=== PATIENT | male | born 1960 | race Caucasian/White ===

== ENCOUNTER 2017-12-20 14:07 | Inpatient (IN) | payer MEDICAID, OTHER ==
--- NOTE | 2017-12-20 15:09 | ED ---
General Adult HPI - General Source: patient, RN notes reviewed, old records reviewed Mode of arrival: ambulatory Limitations: no limitations <Faizan Hernandez - Last Filed: 12/20/17 15:07> <Mehran Emerson - Last Filed: 12/20/17 18:02> - General Chief complaint: Psychiatric Symptoms Stated complaint: mental health Time Seen by Provider: 12/20/17 14:38 - History of Present Illness Initial comments: This is a 57-year-old male to the ER for evaluation presents today for evaluation of psychosis, patient has history of schizophrenia, she is having paranoid delusions, he thinks that his insides are being notified out by taking an x-ray. Patient brought in by PD, patient called PD due to patient's mental state and not taking his home meds (Faizan Hernandez) - Related Data Allergies Allergy/AdvReac Type Severity Reaction Status Date / Time No Known Allergies Allergy Verified 12/20/17 14:15 Review of Systems ROS Other: All systems not noted in ROS Statement are negative. <Faizan Hernandez - Last Filed: 12/20/17 15:07> ROS Other: All systems not noted in ROS Statement are negative. <Mehran Emerson - Last Filed: 12/20/17 18:02> ROS Statement: Those systems with pertinent positive or pertinent negative responses have been documented in the HPI. Past Medical History Past Medical History: No Reported History History of Any Multi-Drug Resistant Organisms: None Reported Past Surgical History: Hernia Repair, Orthopedic Surgery, Tonsillectomy Past Psychological History: Bipolar, Schizophrenia Smoking Status: Former smoker Past Alcohol Use History: None Reported Past Drug Use History: Marijuana <Faizan Hernandez - Last Filed: 12/20/17 15:07> General Exam Limitations: no limitations General appearance: alert, in no apparent distress Head exam: Present: atraumatic, normocephalic, normal inspection Eye exam: Present: normal appearance, PERRL, EOMI. Absent: scleral icterus, conjunctival injection, periorbital swelling ENT exam: Present: normal exam, mucous membranes moist Neck exam: Present: normal inspection. Absent: tenderness, meningismus, lymphadenopathy Respiratory exam: Present: normal lung sounds bilaterally. Absent: respiratory distress, wheezes, rales, rhonchi, stridor Cardiovascular Exam: Present: regular rate, normal rhythm, normal heart sounds. Absent: systolic murmur, diastolic murmur, rubs, gallop, clicks GI/Abdominal exam: Present: soft, normal bowel sounds. Absent: distended, tenderness, guarding, rebound, rigid Extremities exam: Present: normal inspection, full ROM, normal capillary refill. Absent: tenderness, pedal edema, joint swelling, calf tenderness Back exam: Present: normal inspection Neurological exam: Present: alert, oriented X3, CN II-XII intact Psychiatric exam: Present: normal affect, normal mood Skin exam: Present: warm, dry, intact, normal color. Absent: rash <Faizan Hernandez - Last Filed: 12/20/17 15:07> Course <Faizan Hernandez - Last Filed: 12/20/17 15:07> <Mehran Emerson - Last Filed: 12/20/17 18:02> Vital Signs 12/20/17 14:08 Temperature 98.3 F Pulse Rate 78 Respiratory 18 Rate Blood Pressure 157/75 O2 Sat by Pulse 98 Oximetry - Reevaluation(s) Reevaluation #1: 12/20/17 15:09 Patient is medically clear for psychiatric evaluation (Faizan Hernandez) Medical Decision Making <Faizan Hernandez - Last Filed: 12/20/17 15:07> <Mehran Emerson - Last Filed: 12/20/17 18:02> - Medical Decision Making The patient was seen and examined. All diagnostics are reviewed. It does appear that he is having some psychosis and case is discussed with the psychiatric nurse and they would like to admit him for further evaluation and treatment. He does complain of some bruising to his right lateral chest. He states that this was due to an x-ray that he had recently. There is some mild tenderness noted to the area with mild bruising. It is felt as though he may have a rib contusion on the right. He also relates that he's had some occasional abdominal pain and diarrhea. Overall, it is still felt as though he is medically cleared for further psychiatric admission. (Mehran Emerson) - Lab Data Lab Results 12/20/17 Range/Units 16:14 Urine Opiates Screen Not Detected (NotDetected) Ur Oxycodone Screen Not Detected (NotDetected) Urine Methadone Screen Not Detected (NotDetected) Ur Propoxyphene Screen Not Detected (NotDetected) Ur Barbiturates Screen Not Detected (NotDetected) U Tricyclic Antidepress Not Detected (NotDetected) Ur Phencyclidine Scrn Not Detected (NotDetected) Ur Amphetamines Screen Not Detected (NotDetected) U Methamphetamines Scrn Not Detected (NotDetected) U Benzodiazepines Scrn Detected H (NotDetected) Urine Cocaine Screen Not Detected (NotDetected) U Marijuana (THC) Screen Detected H (NotDetected) Disposition <Faizan Hernandez - Last Filed: 12/20/17 15:07> Is patient prescribed a controlled substance at d/c from ED?: No Time of Disposition: 18:02 Decision Date: 12/20/17 Decision Time: 18:02 <Mehran Emerson - Last Filed: 12/20/17 18:02> Clinical Impression: Psychosis, Contusion of rib on right side Disposition: ADMITTED IP TO THIS [facility] Condition: Fair Referrals: None,Stated [REFERRING] - 1-2 days
[2017-12-20 16:38] LABS: Amphetamine Screen,Urine Not Detected (NotDetected); Barbiturate Screen,Urine Not Detected (NotDetected); Benzodiazepines Screen,Urine Detected (NotDetected); Cocaine Screen,Urine Not Detected (NotDetected); Methadone Screen, Urine Not Detected (NotDetected); Opiate Screen,Urine Not Detected (NotDetected); Oxycodone Screen, Urine Not Detected (NotDetected); Phencyclidine Screen,Urine Not Detected (NotDetected); Tricyclic Antidepressant,Urine Not Detected (NotDetected); Urn Cannabinoid Scrn Detected (NotDetected)
[2017-12-20] MEDS ORDERED: ACETAMINOPHEN TAB 500 MG TAB PO STA (16:54)
[2017-12-20] MEDS ORDERED: MAGNESIUM HYDROXIDE 2,400 MG/10 ML CUP PO PRN (18:14)
[2017-12-20] MEDS ORDERED: ZIPRASIDONE 20 MG VIAL IM PRN (18:14)
[2017-12-20 18:31] LABS: Appearance,Urine Clear (Clear); Bilirubin,Urine Negative (Negative); Blood,Urine Negative (Negative); Color,Urine Yellow; Glucose,Urine (UA) Negative (Negative); Ketones,Urine 1+ (Negative); Leukocyte Esterase,Urine Negative (Negative); Nitrite,Urine Negative (Negative); Protein,Urine Trace (Negative); Specific Gravity,Urine 1.016 (1.001-1.035); Urobilinogen,Urine <2.0 mg/dL (<2.0)
[2017-12-20 19:10] VITALS: BMI 29.0
[2017-12-20] MEDS: PANTOPRAZOLE 40 MG TABLET PO SCH (20:12)
[2017-12-20] MEDS ORDERED: QUEtiapine 50 MG TAB PO SCH (21:00)
[2017-12-21] MEDS: PANTOPRAZOLE 40 MG TABLET PO SCH ×2 (08:19→17:53)
[2017-12-21] MEDS: FLUTICASONE 50MCG/SPRAY NASAL 16GM EA NOSTRIL SCH (08:19)
[2017-12-21 11:35] LABS: Basophils # (A) 0.1 k/uL (0-0.2); Basophils % (A) 0 %; Eosinophils # (A) 0.2 k/uL (0-0.7); Eosinophils % (A) 1 %; HCT 42.1 % (39.0-53.0); HGB 14.3 gm/dL (13.0-17.5); Lymphocytes # (A) 1.8 k/uL (1.0-4.8); Lymphocytes % (A) 16 %; MCH 28.6 pg (25.0-35.0); MCHC 33.9 g/dL (31.0-37.0); MCV 84.4 fL (80.0-100.0); Mean Platelet Volume 6.6; Monocytes # (A) 0.8 k/uL (0-1.0); Monocytes % (A) 7 %; Neutrophils # (A) 8.5 k/uL (1.3-7.7); Neutrophils % (A) 74 %; Platelet Count 438 k/uL (150-450); RBC 4.99 m/uL (4.30-5.90); RDW 13.6 % (11.5-15.5); WBC 11.5 k/uL (3.8-10.6)
[2017-12-21 12:03] LABS: ALT 52 U/L (21-72); AST 29 U/L (17-59); Albumin 4.5 g/dL (3.5-5.0); Alkaline Phosphatase 84 U/L (38-126); Anion Gap 15 mmol/L; Blood Urea Nitrogen 11 mg/dL (9-20); Calcium 10.1 mg/dL (8.4-10.2); Carbon Dioxide 23 mmol/L (22-30); Chloride 97 mmol/L (98-107); Glucose 107 mg/dL (74-99); Potassium 4.4 mmol/L (3.5-5.1); Sodium 135 mmol/L (137-145); Total Bilirubin 1.3 mg/dL (0.2-1.3); Total Protein 7.3 g/dL (6.3-8.2)
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
[2017-12-21] MEDS: ACETAMINOPHEN TAB 325 MG TAB PO PRN (15:58)
[2017-12-21] MEDS: TAMSULOSIN 0.4 MG CAP.ER.24H PO SCH (17:53)
[2017-12-21] MEDS: QUEtiapine 100 MG TAB PO SCH (21:07)
--- NOTE | 2017-12-21 21:37 | P.MDCNMH ---
History of Present Illness H&P Date: 12/21/17 Chief Complaint: Delusions Patient is a 57-year-old male with a known history of chronic hip pain and paranoid schizophrenia was admitted to the hospital with acute psychosis. Patient was petitioned by his says he is behaving bizarrely at home. Patient is preoccupied with dizziness things and he thinks that his insides are being notified out by taking an x-ray. Otherwise patient currently denied any complaints of chest pain or shortness of breath. Denied any recent illnesses but patient is not a good historian. His UDS found to have marijuana and benzodiazepines. No fever no chills. Review of Systems Constitutional: Patient denies any fever or chills . No generalized weakness or weight loss. Abdomen: Patient denied nausea vomiting and diarrhea and abdominal pain. Cardiovascular: Patient denies any chest pain or short of breath no palpitations. Respiratory: patient denied any cough is from production. No shortness of breath Neurologic: Patient denied any numbness or tingling headache. Musculoskeletal: Patient denies any complaints of joint swelling or deformity. Complains of hip pain Past Medical History Past Medical History: No Reported History History of Any Multi-Drug Resistant Organisms: None Reported Past Surgical History: Hernia Repair, Orthopedic Surgery, Tonsillectomy Smoking Status: Former smoker Medications and Allergies Home Medications Medication Instructions Recorded Confirmed Type ALPRAZolam [Xanax] 0.5 mg PO TID PRN 12/20/17 12/20/17 History Fluticasone Propionate [Flonase 1 spray EA NOSTRIL DAILY 12/20/17 12/20/17 History Allergy Relief] Omeprazole 40 mg PO BID 12/20/17 12/20/17 History Tamsulosin [Flomax] 0.8 mg PO W/SUPPER 12/20/17 12/20/17 History Allergies Allergy/AdvReac Type Severity Reaction Status Date / Time No Known Allergies Allergy Verified 12/20/17 18:23 Physical Exam Vitals: Vital Signs Temp Pulse Pulse Resp BP BP Pulse Ox 12/21/17 08:34 87 18 115/68 12/21/17 06:44 98.3 F 89 12 138/69 12/20/17 19:02 97.5 F L 66 16 132/71 97 12/20/17 18:16 73 18 129/79 98 Intake and Output 12/20/17 12/21/17 12/21/17 22:59 06:59 14:59 Other: Weight 89.2 kg PHYSICAL EXAMINATION: Patient is lying in the bed comfortably, no acute distress, awake alert but patient is incoherent. HEENT: Normocephalic. Neck is supple. Pupils reactive. Nostrils clear. Oral cavity is moist. Ears reveal no drainage. Neck reveals no JVD, carotid bruits, or thyromegaly. CHEST EXAMINATION: Trachea is central. Symmetrical expansion. Lung travis clear to auscultation and percussion. CARDIAC: Normal S1, S2 with no gallops. No murmurs ABDOMEN: Soft. Bowel sounds normal. No organomegaly. No abdominal bruits. Extremities: reveal no edema. No clubbing or cyanosis Neurologically awake, alert, oriented x3 with well-coordinated movements. No focal deficits noted Skin: No rash or skin lesions. Psychiatric: Coperative. Could not be obtained completely Musculoskeletal: No joint swelling or deformity. Normal range of motion. Cranial Nerve Examination - Cranial Nerves Cranial Nerve I- Olfactory: Intact Cranial Nerve II- Optic: Intact Cranial Nerve III- Oculomotor: Intact Cranial Nerve IV- Trochlear: Intact Cranial Nerve V- Trigeminal: Intact Cranial Nerve - Abducens: Intact Cranial Nerve VII- Facial: Intact Cranial Nerve VIII- Auditory: Intact Cranial Nerve IX- Glossopharyngeal: Intact Cranial Nerve X- Vagus: Intact Cranial Nerve XI- Accessory: Intact Cranial Nerve XII- Hypoglossal: Intact Results CBC & Chem 7: 12/21/17 10:54 12/21/17 10:54 Labs: Abnormal Lab Results - Last 24 Hours (Table) 12/20/17 12/20/17 12/21/17 Range/Units 16:14 16:14 10:54 WBC 11.5 H (3.8-10.6) k/uL Neutrophils # 8.5 H (1.3-7.7) k/uL Sodium (137-145) mmol/L Chloride (98-107) mmol/L Glucose (74-99) mg/dL Urine Protein Trace H (Negative) Urine Ketones 1+ H (Negative) U Benzodiazepines Scrn Detected H (NotDetected) U Marijuana (THC) Screen Detected H (NotDetected) 12/21/17 Range/Units 10:54 WBC (3.8-10.6) k/uL Neutrophils # (1.3-7.7) k/uL Sodium 135 L (137-145) mmol/L Chloride 97 L (98-107) mmol/L Glucose 107 H (74-99) mg/dL Urine Protein (Negative) Urine Ketones (Negative) U Benzodiazepines Scrn (NotDetected) U Marijuana (THC) Screen (NotDetected) Assessment and Plan Assessment: Acute psychosis with delusions History of schizophrenia. Noncompliance with medications Hypovolemic hyponatremia Chronic pain syndrome with hip pain and left finger pain Marijuana use Plan: Patient will be continued on current psychiatric medications. Patient is ambulating. No need for DVT prophylaxis. Patient will be counseled for marijuana use. Continue with pain management and will follow up closely. Further recommendations based on the clinical course. Thank you for your consult Time with Patient: Greater than 30
[2017-12-22] MEDS: FLUTICASONE 50MCG/SPRAY NASAL 16GM EA NOSTRIL SCH (09:17)
[2017-12-22] MEDS: PANTOPRAZOLE 40 MG TABLET PO SCH ×2 (09:17→17:35)
--- NOTE | 2017-12-22 15:05 | P.PN ---
Progress Note - Text Progress Note Date: 12/22/17 I reviewed the medical record, interviewed the patient and discuss his treatment and treatment plan during team meeting. The patient was without complaint. We discussed his current psychotropic medication -Seroquel. He stated that, in the past, he was reluctant to take medication because he experienced "restless leg" when he had taken the medication before. He denied that he has experience so far with the dose was prescribing was much lower than prescribed by his outpatient psychiatrist. I explained that we will need to increase his dose but we remain concerned about any potential side effect. He remains religiously preoccupied. He brought a Bible along to the interview and insisted on reading from the Bible. He would not talk about the paranoid or bizarre behavior he displayed prior to admission. He understands that CPS will most likely require his participation in mental health treatment for the children to return home. Medicine consult appreciated He presented as a casually groomed elderly male who looked a bit older than his stated age. He made eye contact and attended to interview. He had no distinguishing features or prominent physical abnormalities. He had a bright facial expression. He is alert and oriented to person, place and time. He showed no abnormality of psychomotor activity. He had no abnormal movements. His speech was spontaneous with slightly increased rate and rhythm. He had no articulation difficulties. His affect was bright, stable and appropriate. He denied suicidal ideation or wishes. He denied homicidal ideation. He denied depressive cognitions such as hopelessness, helplessness or worthlessness. He didn't express ideas reference, paranoid ideation or delusions. He specifically avoided discussing the paranoia and delusional beliefs described by his . His thinking was concrete but his associations were coherent and logical. He did not demonstrate clang associations, perseverations, neologisms or blocking. He denied hallucinations and did not appear to be responding to internal stimuli. Impression: Schizophrenia, rule out schizoaffective disorder, rule out bipolar disorder Plan: Continue inpatient psychiatric hospitalization due to severity of psychiatric symptoms. Continue to titrate the dose of Seroquel to 200 mg per day. Encouraged continued participation in therapeutic groups and activities. Evaluate clinical status response to treatment on a daily basis.
[2017-12-22] MEDS: TAMSULOSIN 0.4 MG CAP.ER.24H PO SCH (17:35)
[2017-12-22] MEDS: QUEtiapine 100 MG TAB PO SCH (21:17)
[2017-12-23] MEDS: FLUTICASONE 50MCG/SPRAY NASAL 16GM EA NOSTRIL SCH (08:39)
[2017-12-23] MEDS: LORazepam 1 MG TAB PO PRN ×2 (08:39→17:49)
[2017-12-23] MEDS: PANTOPRAZOLE 40 MG TABLET PO SCH ×2 (08:39→17:10)
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
[2017-12-23] MEDS: TAMSULOSIN 0.4 MG CAP.ER.24H PO SCH (17:10)
[2017-12-23] MEDS: QUEtiapine 100 MG TAB PO SCH (20:03)
[2017-12-24] MEDS: ACETAMINOPHEN TAB 325 MG TAB PO PRN (01:19)
[2017-12-24] MEDS: LORazepam 1 MG TAB PO PRN ×2 (03:39→16:21)
[2017-12-24] MEDS: PANTOPRAZOLE 40 MG TABLET PO SCH ×2 (09:09→17:58)
[2017-12-24] MEDS: FLUTICASONE 50MCG/SPRAY NASAL 16GM EA NOSTRIL SCH (09:09)
--- NOTE | 2017-12-24 14:23 | P.PN ---
Progress Note - Text Progress Note Date: 12/24/17 I reviewed the medical record, interviewed the patient and discuss his treatment and treatment plan during team meeting. He was distressed over her recent meeting with the superintendent factory from [facility]. I had difficulty understanding the reason for his distress. He repeated that he did not want anyone, other than "Dr. Kirk," to "know my business." He was preoccupied by the incident with his neighbor in November 2017 that led to the charges of assault. He also expressed the belief that "a Iranis or Iraqis" have "damaged my insides" when they obtain x-rays at a [facility]. He also frequently quoted structures and came into the interview room carrying his Bible. He was neatly groomed pleasant and cooperative. He had a blunted but bright facial expression. He showed no abnormality of psychomotor activity. Specifically, he was not agitated or restless. His speech was spontaneous with increased rate to the point that he appeared hyperverbal. His affect was elevated but appropriate. He did not express suicidal ideation, wishes or homicidal ideation. He expressed feelings of hopelessness or helplessness. He expressed ideas of reference, paranoid ideation and delusional thoughts. His thinking was concrete and associations at times were not logical, coherent and goal directed. He denied hallucinations and did not appear to be responding to internal stimuli. Impression: His thinking is much more disorganized and his expressing a disjointed paranoid delusional beliefs. Plan: Continue inpatient hospitalization due to the severity of his psychiatric symptoms. Continue to titrate the Seroquel to a minimum of 200 mg at bedtime. Encourage participation in therapeutic groups and activities. Evaluate clinical status response to treatment on a daily basis.
[2017-12-24] MEDS: MAG HYDROX/AL HYDROX/SIMETH 30 ML CUP PO PRN (15:49)
[2017-12-24] MEDS: QUEtiapine 100 MG TAB PO SCH (15:49)
[2017-12-24] MEDS: TAMSULOSIN 0.4 MG CAP.ER.24H PO SCH (17:58)
[2017-12-25] MEDS: ACETAMINOPHEN TAB 325 MG TAB PO PRN ×2 (02:09→19:56)
[2017-12-25] MEDS: LORazepam 1 MG TAB PO PRN ×3 (06:32→21:18)
[2017-12-25] MEDS: FLUTICASONE 50MCG/SPRAY NASAL 16GM EA NOSTRIL SCH (09:19)
[2017-12-25] MEDS: PANTOPRAZOLE 40 MG TABLET PO SCH ×2 (09:19→16:44)
--- NOTE | 2017-12-25 15:16 | P.PN ---
Subjective Progress Note Date: 12/25/17 Principal diagnosis: Bipolar disorder current episode manic with psychosis Reviewed the medical record, interviewed the patient and discuss his treatment and treatment plan with the treatment team. He was without complaint. His only concern was discharge. He came to the office with his Bible and one point read a passage but did not preach or appeared overtly religiously preoccupied. He was not preoccupied that he was "poison" or "damaged" by x-rays when he was at [facility]. He acknowledged that he could have misunderstood the situation and not have been damaged by x-rays. He was also not preoccupied by the conflict with his neighbor that resulted in the assault charges. We discussed dose of Seroquel and he agreed to increase the dose to 200 mg at bedtime. Objective - Vital Signs Vital signs: Vital Signs Temp 97.8 F 12/25/17 00:25 Pulse 107 H 12/25/17 00:25 Resp 16 12/25/17 00:25 BP 119/69 12/25/17 00:25 Pulse Ox 98 12/24/17 11:29 - Psychiatric Psychiatric Comment(s): He presented as a casually groomed casually dressed elderly male who is here was solid grade. He made eye contact and attended to the interview. He had no distinction features are prominent physical modalities. He had a bright facial expression. He is alert and oriented to person, place and time. He showed about amount. Psychomotor activity and no abnormal movements. His speech was spontaneous with slight increase in rate and rhythm. His affect was bright, stable and appropriate. He denied suicidal ideation, wishes or homicidal ideation. He denied feeling hopeless, helpless or worthless. He did not express ideas reference or clear paranoid ideation. He did not express delusional thoughts. His thinking was concrete but his associations were coherent and logical. He denied hallucinations and did not appear to responding to internal stimuli. - Labs CBC & Chem 7: 12/21/17 10:54 12/21/17 10:54 Assessment and Plan (1) Bipolar I disorder, most recent episode manic, severe with psychotic features Current Visit: Yes Status: Acute Priority: High Code(s): F31.2 - BIPOLAR DISORD, CRNT EPISODE MANIC SEVERE W PSYCH FEATURES SNOMED Code(s): 77053792 Plan: Continue inpatient hospitalization due to the severity of his psychiatric diagnosis. Increase Seroquel to 200 mg at bedtime on 12/26/2017. Continue titration based on tolerance and side effects. Encouraged continued participation in therapeutic groups and activities. Evaluate clinical status response to treatment on a daily basis.
[2017-12-25] MEDS: TAMSULOSIN 0.4 MG CAP.ER.24H PO SCH (16:44)
[2017-12-25] MEDS: MAG HYDROX/AL HYDROX/SIMETH 30 ML CUP PO PRN (17:16)
[2017-12-25] MEDS: QUEtiapine 100 MG TAB PO SCH (21:16)
[2017-12-26] MEDS: FLUTICASONE 50MCG/SPRAY NASAL 16GM EA NOSTRIL SCH (08:21)
[2017-12-26] MEDS: LORazepam 1 MG TAB PO PRN ×2 (08:21→15:33)
[2017-12-26] MEDS: PANTOPRAZOLE 40 MG TABLET PO SCH ×2 (08:21→16:56)
[2017-12-26] MEDS: ACETAMINOPHEN TAB 325 MG TAB PO PRN (13:55)
[2017-12-26] MEDS: TAMSULOSIN 0.4 MG CAP.ER.24H PO SCH (16:56)
--- NOTE | 2017-12-26 20:05 | P.PN ---
Progress Note - Text Progress Note Date: 12/26/17 Patient was seen today. he reports his Seroquel is helping him to sleep better. He describes his visual hallucinations of seeing two people and a young boy running away. He denies side effects from the medications. Reports good appetite. Denies symptoms of depression. Reports going to all his groups. No anger or agitation reported. 57-year-old male, appears his stated age in fair grooming and hygiene. No abnormal movements noted. He maintains good eye contact. His speech is normal rate and tone and volume. Mood is reported as stable steady affect bright. His thought process is linear and goal directed. He denies current auditory hallucinations. rePorts visual hallucinations. Denies paranoia. He denies current suicidal or homicidal ideations. He is alert and oriented 4. Will increase seroquel dose to 200mg po qhs. Monitor for symptoms.
[2017-12-26] MEDS: QUEtiapine 100 MG TAB PO SCH (21:26)
[2017-12-27] MEDS: LORazepam 1 MG TAB PO PRN ×3 (02:44→17:33)
[2017-12-27] MEDS: FLUTICASONE 50MCG/SPRAY NASAL 16GM EA NOSTRIL SCH (08:57)
[2017-12-27] MEDS: PANTOPRAZOLE 40 MG TABLET PO SCH ×2 (08:58→17:31)
--- NOTE | 2017-12-27 09:37 | CONS ---
CONSULTATION DATE OF SERVICE: 12/26/17 I evaluated Mr. Zapien yesterday in the afternoon that is on 12/26/2017. This gentleman is in the mental health unit with a diagnosis of schizophrenia and I was asked to see him because of chest discomfort. His EKGs were reviewed. There were all normal. His initial troponin was also normal and subsequently the 2nd troponin was also normal. His complaint was pain in the right anterior chest. The pain was sharp and occasionally dull, lasted a few seconds on and off. The quality of pain seems very atypical. This gentleman has what seems to be an anxiety schizophrenia and takes some inhalers. He also has some benign prostatic hypertrophy and takes Flomax. He has no known allergies. He has history of some hernia surgery and tonsillectomy. At the time of my evaluation he is virtually asymptomatic. EXAMINATION: VITAL SIGNS: Blood pressure is 118/70, pulse rate is about 74 per minute and regular. HEENT: Unremarkable. Fundus was not examined by me. NECK: Supple. No JVD. I do not hear a carotid bruit. There is no thyromegaly. HEART: Exam reveals S1, S2 heard normally in all areas without a rub, murmur or gallop. LUNGS: Clear. ABDOMEN: Is soft, nontender. EXTREMITIES: Lower extremities reveal normal pulses. No edema. CENTRAL NERVOUS SYSTEM is normal. EKG revealed sinus mechanism, no acute changes. IMPRESSION: 1. Atypical chest pain. 2. Schizophrenia, currently in mental health unit. 3. Benign prostatic hypertrophy. RECOMMENDATIONS: No intervention from a cardiac standpoint. The repeat 2nd troponin is also normal. EKG is unremarkable and pain is atypical. The patient will have an echocardiogram on Thursday and when he is out of the mental health unit, we will consider a stress test as an outpatient, but at this time no intervention necessary. Discussed my thoughts in detail with the patient. Thank you very much for the consult. MMODL / IJN: [id number] /
[2017-12-27] MEDS: ACETAMINOPHEN TAB 325 MG TAB PO PRN (12:39)
[2017-12-27] MEDS: MAG HYDROX/AL HYDROX/SIMETH 30 ML CUP PO PRN (13:13)
[2017-12-27] MEDS: TAMSULOSIN 0.4 MG CAP.ER.24H PO SCH (17:31)
--- NOTE | 2017-12-27 21:03 | P.PN ---
Progress Note - Text Progress Note Date: 12/27/17 Patient was seen today. He reports being compliant with his medications. No side effects reported. stated he only goes to a few groups, and asked why he states there are a lot of evil things going on around. His not to visit him due to his perceived evil things. He reports good sleep and appetite. His current symptoms of depression. Denies anger or agitation or irritability. 57-year-old male, appears his stated age in fair grooming and hygiene. He maintains good eye contact. No abnormal movements noted. His speech and thought processes are tangential. Mood is reported as good and affect appropriate. Denies current auditory or visual hallucinations. He has paranoid delusions. He is alert and oriented 4. He denies current suicidal or HOMICIDAL IDEATIONS.. His insight and judgment are improving. Continue seroquel 200mg po qhs. Monitor for symptoms. Encourage participation in [place] milieu and therapeutic groups Ze worker to coordinate discharge and aftercare.
[2017-12-27] MEDS: QUEtiapine 100 MG TAB PO SCH (21:14)
[2017-12-28] MEDS: LORazepam 1 MG TAB PO PRN ×3 (02:17→22:52)
[2017-12-28] MEDS: FLUTICASONE 50MCG/SPRAY NASAL 16GM EA NOSTRIL SCH (08:51)
[2017-12-28] MEDS: PANTOPRAZOLE 40 MG TABLET PO SCH ×2 (08:51→17:23)
--- NOTE | 2017-12-28 13:34 | P.PN ---
Subjective Progress Note Date: 12/28/17 Principal diagnosis: Bipolar disorder current episode manic with psychosis I reviewed the medical record, interviewed the patient and discuss his treatment and treatment plan with the treatment team. His only concern was discharge and returning to his family. He was religiously preoccupied throughout the interview. He complained of arm and rib pain but denied that he believes that his body was damaged or harm him by x-rays he received at [facility]. He was not preoccupied by the conflict with his neighbor that resulted in the assault charges. He received his first dose of Seroquel 200 mg last night and complained that he feels somewhat sedated today. Objective - Vital Signs Vital signs: Vital Signs Temp 97.6 F 12/28/17 02:20 Pulse 101 H 12/28/17 02:20 Resp 18 12/28/17 02:20 BP 115/64 12/28/17 02:20 Pulse Ox 98 12/24/17 11:29 Intake & Output 12/27/17 12/28/17 12/28/17 18:59 06:59 18:59 Weight 85.2 kg - Psychiatric Psychiatric Comment(s): He presented as a casually groomed casually dressed elderly male who was pleasant on approach. He made eye contact and attended to the interview. He had no distinguishing features are prominent physical abnormalities. He had a blunted but bright facial expression. He is alert and oriented to person, place and time. He had no abnormalities of psychomotor activity and no abnormal movements. His speech was spontaneous with increase in rate and rhythm. He showed pressured speech but he was interruptible. His affect was bright, stable and appropriate. He denied suicidal ideation, wishes or homicidal ideation. He denied feeling hopeless, helpless or worthless. He did not express ideas reference or clear paranoid ideation. He was religiously preoccupied but did not express clear delusional thoughts. His thinking was concrete and his associations were coherent and logical. He denied hallucinations and did not appear to responding to internal stimuli. - Labs CBC & Chem 7: 12/21/17 10:54 12/21/17 10:54 Assessment and Plan (1) Bipolar I disorder, most recent episode manic, severe with psychotic features Current Visit: Yes Status: Acute Priority: High Code(s): F31.2 - BIPOLAR DISORD, CRNT EPISODE MANIC SEVERE W PSYCH FEATURES SNOMED Code(s): 16615917 Plan: Continue inpatient hospitalization due to the severity of his psychiatric diagnosis. Continue Seroquel to 200 mg at bedtime and titrated according to clinical response and tolerance. Encouraged continued participation in therapeutic groups and activities. Evaluate clinical status response to treatment on a daily basis.
[2017-12-28] MEDS: MAG HYDROX/AL HYDROX/SIMETH 30 ML CUP PO PRN (14:33)
[2017-12-28] MEDS: ACETAMINOPHEN TAB 325 MG TAB PO PRN ×2 (14:36→18:49)
[2017-12-28] MEDS: TAMSULOSIN 0.4 MG CAP.ER.24H PO SCH (17:23)
[2017-12-28] MEDS: QUEtiapine 100 MG TAB PO SCH (20:37)
[2017-12-28 21:21] VITALS: PULSE 95
[2017-12-29] MEDS: ACETAMINOPHEN TAB 325 MG TAB PO PRN ×2 (05:41→12:45)
[2017-12-29 06:32] VITALS: BP 106/62; RESP 14; TEMP 97.7
[2017-12-29] MEDS: PANTOPRAZOLE 40 MG TABLET PO SCH (08:53)
[2017-12-29] MEDS: FLUTICASONE 50MCG/SPRAY NASAL 16GM EA NOSTRIL SCH (08:53)
[2017-12-29] MEDS: LORazepam 1 MG TAB PO PRN (08:54)
--- NOTE | 2017-12-29 13:54 | P.DS ---
Providers Date of admission: 12/20/17 17:58 Attending physician: Clif Nicholas MD Consults: 12/20/17 18:14 Consult Physician Routine Consulting Provider: Eloy Zhao Consult Reason/Comments: H&P for mental health admission Do you want consulting provider notified?: Yes 12/25/17 18:47 Consult Physician Urgent Consulting Provider: Humphrey Acosta Consult Reason/Comments: Chest pain Do you want consulting provider notified?: Yes Primary care physician: Manoj Smiley - Zakiya Diagnosis(es) (1) Bipolar I disorder, most recent episode manic, severe with psychotic features Current Visit: Yes Status: Acute Priority: High Hospital Course: He is a 57-year-old male who has a history of a bipolar illness. The police brought him to the emergency department and completed the petition after his called the police concerned about his behavior. He complained that he has become paranoid and delusional or he thought that his insides had been burned by x-rays he received at a [facility]. He believes that God was telling him to preach. He thinks that Yunior also was murdered by Shakir Gregg and dad Shakir Barnettrard plans to kill him and his family. ALLERGIES long history of mental illness and received several diagnoses including schizophrenia and bipolar illness. He is had multiple psychiatric hospitalization and has refused follow-up with [facility]. His stated that he developed a belief that his medications were poisoned and develop paranoid thoughts about staff at [facility]. We admitted him to the psychiatric unit involuntarily under the care of this typewriter operator automatic. We provided a comprehensive biopsychosocial assessment. The mining consultant bridal stylist sales consultant completed the admission physical exam and medical history. The bridal stylist sales consultant diagnosed hypovolemic hyponatremia, chronic pain syndrome with hip pain and left finger pain and marijuana use. The bridal stylist sales consultant did not recommend narcotic pain medications for treatment of the patient's pain. We completed the second clinical certificate and submitted the supporting documents to probate court for involuntary hospitalization. The patient met with his deputy county attorney and deferred the court hearing. We restarted Seroquel and titrate dose gradually to 200 mg by mouth daily. The level of patient's paranoia, disorganized thinking and delusional beliefs gradually abated. However he remained religiously preoccupied. I spoke with his Yamel she reported that when he is well he remains religiously preoccupied. The time of discharge she presented as a casually groomed middle-aged male who was pleasant on approach. He made eye contact and attended to the interview. He had no distinguishing features or prominent physical abnormalities. He had a blunted but bright facial expression. He was alert and oriented to person, place and time. He showed no abnormality of psychomotor behavior. He was not agitated or restless. His speech was spontaneous with normal rate, rhythm and volume. His affect was blunted but stable and appropriate. He denied suicidal ideation or wishes. He denied homicidal ideation. He denies depressive cognitions such as hopelessness , helplessness or worthlessness. He did not ruminate about bodily injury or the friend "Shakir Gregg." He did not express phobias, ideas reference or paranoid ideation. He did not express delusional beliefs. His thinking was concrete but his associations were coherent and logical. He denied hallucinations and did not appear to be responding to internal stimuli. Patient Condition at Discharge: Fair Plan - Discharge Summary Discharge Rx Participant: No New Discharge Prescriptions: New QUEtiapine [SEROquel] 200 mg PO HS #30 tab Continue Fluticasone Propionate [Flonase Allergy Relief] 1 spray EA NOSTRIL DAILY Tamsulosin [Flomax] 0.8 mg PO W/SUPPER Omeprazole 40 mg PO BID Discontinued ALPRAZolam [Xanax] 0.5 mg PO TID PRN PRN Reason: Anxiety Discharge Medication List Fluticasone Propionate [Flonase Allergy Relief] 1 spray EA NOSTRIL DAILY [History] Omeprazole 40 mg PO BID 12/20/17 [History] Tamsulosin [Flomax] 0.8 mg PO W/SUPPER 12/20/17 [History] QUEtiapine [SEROquel] 200 mg PO HS #30 tab 12/29/17 [Rx] Follow up Appointment(s)/Referral(s): [facility] [Outside] - 01/06/18 8:00 am (w/ Gm Montero) Manoj Smiley MD [Primary Care Provider] - As Needed Patient Instructions/Handouts: Bipolar Disorder (GEN), Brief Psychotic Disorder (GEN) Activity/Diet/Wound Care/Special Instructions: Activity and diet as tolerated. Avoid the use of street drugs and alcohol. Take all medications as prescribed. When you are in need of refills on your medications contact your medical provider and/or outpatient psychiatrist to have this done. Please go to scheduled outpatient appointment for aftercare treatment. If symptoms return or become worse call the crisis line at [phone] and/or go to the nearest emergency room for an evaluation. Discharge Disposition: HOME SELF-CARE
== END 2017-12-29 14:23 | disposition home or self-care (01) | DRG 885 ==
LOC: EC 14:07 → 3MHU 17:58
PROVIDERS: ADMIT Psychiatry & Neurology Psychiatry; ATTEND Psychiatry & Neurology Psychiatry
DX: F31.2 Bipolar disorder, current episode manic severe with psychotic features (principal); E87.1 Hypo-osmolality and hyponatremia; F20.0 Paranoid schizophrenia; F41.9 Anxiety disorder, unspecified; G89.4 Chronic pain syndrome; N40.0 Benign prostatic hyperplasia without lower urinary tract symptoms; S20.211A Contusion of right front wall of thorax, initial encounter; Z65.3 Problems related to other legal circumstances; Z79.899 Other long term (current) drug therapy; Z87.891 Personal history of nicotine dependence; Z71.51 Drug abuse counseling and surveillance of drug abuser; F12.90 Cannabis use, unspecified, uncomplicated; M25.559 Pain in unspecified hip; M79.646 Pain in unspecified finger(s); R07.89 Other chest pain; Z91.14 Patient's other noncompliance with medication regimen
CPT/HCPCS: 80053; 80306; 81003; 82075; 84443; 84484; 85025; 93005; 99285

== ENCOUNTER 2017-12-30 18:19 | Inpatient (IN) | payer MEDICAID, OTHER ==
--- NOTE | 2017-12-30 19:18 | ED ---
Psych HPI - General Chief Complaint: Psychiatric Symptoms Stated Complaint: Mental Health Time Seen by Provider: 12/30/17 18:51 Source: patient Mode of arrival: ambulatory - History of Present Illness Initial Comments: This is a 57-year-old male who was just released from 3 W afternoon patient treatment who is back today now for reassessment. He also complains of right axilla pain some burning right-sided abdominal pain he states he has had this for weeks since he fell he states he was evaluated be still having discomfort. He is rather vague in his presentation and explanation of why he is here. He does relate that he smokes cigarettes just prior to arrival he denies any fevers chills nausea vomiting sweats cough or phlegm production dysuria hematuria or constipation or other symptoms. He denies drug or alcohol use. - Related Data Home Medications Medication Instructions Recorded Confirmed Fluticasone Propionate [Flonase 1 spray EA NOSTRIL DAILY PRN 12/20/17 12/30/17 Allergy Relief] Omeprazole 40 mg PO BID 12/20/17 12/30/17 Tamsulosin [Flomax] 0.8 mg PO W/SUPPER 12/20/17 12/30/17 Previous Rx's Medication Instructions Recorded QUEtiapine [SEROquel] 200 mg PO HS #30 tab 12/29/17 Allergies Allergy/AdvReac Type Severity Reaction Status Date / Time oxycodone [From OxyContin] Allergy Rash/Hives Verified 12/30/17 20:01 Review of Systems ROS Statement: Those systems with pertinent positive or pertinent negative responses have been documented in the HPI. ROS Other: All systems not noted in ROS Statement are negative. Past Medical History Past Medical History: No Reported History History of Any Multi-Drug Resistant Organisms: None Reported Past Surgical History: Hernia Repair, Orthopedic Surgery, Tonsillectomy Past Psychological History: Bipolar, Schizophrenia Smoking Status: Former smoker Past Alcohol Use History: None Reported Past Drug Use History: Marijuana General Exam - General Exam Comments Initial Comments: This is a well-developed well-nourished awake alert oriented who is demonstrate some flight of ideas. Limitations: altered mental status, physical limitation General appearance: alert, in no apparent distress Head exam: Present: atraumatic, normocephalic, normal inspection Eye exam: Present: normal appearance, PERRL, EOMI. Absent: scleral icterus, conjunctival injection, periorbital swelling ENT exam: Present: normal exam, mucous membranes moist Neck exam: Present: normal inspection. Absent: tenderness, meningismus, lymphadenopathy Respiratory exam: Present: normal lung sounds bilaterally, chest wall tenderness (Mild chest wall tenderness under the right axilla no step-off or crepitation). Absent: respiratory distress, wheezes, rales, rhonchi, stridor Cardiovascular Exam: Present: regular rate, normal rhythm, normal heart sounds. Absent: systolic murmur, diastolic murmur, rubs, gallop, clicks GI/Abdominal exam: Present: soft, normal bowel sounds. Absent: distended, tenderness, guarding, rebound, rigid Extremities exam: Present: normal inspection, full ROM, normal capillary refill. Absent: tenderness, pedal edema, joint swelling, calf tenderness Back exam: Present: normal inspection, full ROM, other (Mild right sided flank pain no CVA tenderness no step-off crepitation). Absent: muscle spasm, paraspinal tenderness, vertebral tenderness Neurological exam: Present: alert, oriented X3, CN II-XII intact Psychiatric exam: Present: flat affect Skin exam: Present: warm, dry, intact, normal color. Absent: rash Course Vital Signs 12/30/17 12/30/17 18:31 20:08 Temperature 100.9 F H 98.5 F Pulse Rate 120 H Respiratory 18 Rate Blood Pressure 144/94 O2 Sat by Pulse 97 Oximetry - Reevaluation(s) Reevaluation #1: 12/30/17 21:12 I did review the lab work and the imaging no acute findings other than drug screen. Reevaluation #2: 12/30/17 21:58 Patient was evaluated by psychiatric service and will be admitted Medical Decision Making - Medical Decision Making The patient was evaluated and will be admitted for inpatient treatment of acute psychosis - Lab Data Result diagrams: 12/30/17 19:31 12/30/17 19:31 Lab Results 12/30/17 12/30/17 12/30/17 Range/Units 19:31 19:31 19:31 WBC 9.1 (3.8-10.6) k/uL RBC 5.01 (4.30-5.90) m/uL Hgb 14.0 (13.0-17.5) gm/dL Hct 42.7 (39.0-53.0) % MCV 85.1 (80.0-100.0) fL MCH 28.0 (25.0-35.0) pg MCHC 32.9 (31.0-37.0) g/dL RDW 13.8 (11.5-15.5) % Plt Count 448 (150-450) k/uL Neutrophils % 55 % Lymphocytes % 31 % Monocytes % 6 % Eosinophils % 5 % Basophils % 1 % Neutrophils # 5.0 (1.3-7.7) k/uL Lymphocytes # 2.8 (1.0-4.8) k/uL Monocytes # 0.6 (0-1.0) k/uL Eosinophils # 0.4 (0-0.7) k/uL Basophils # 0.1 (0-0.2) k/uL Sodium 144 (137-145) mmol/L Potassium 4.9 (3.5-5.1) mmol/L Chloride 107 (98-107) mmol/L Carbon Dioxide 23 (22-30) mmol/L Anion Gap 14 mmol/L BUN 20 (9-20) mg/dL Creatinine 0.76 (0.66-1.25) mg/dL Est GFR (CKD-EPI)AfAm >90 (>60 ml/min/1.73 sqM) Est GFR (CKD-EPI)NonAf >90 (>60 ml/min/1.73 sqM) Glucose 113 H (74-99) mg/dL Calcium 10.2 (8.4-10.2) mg/dL Magnesium 1.8 (1.6-2.3) mg/dL Total Bilirubin 0.5 (0.2-1.3) mg/dL AST 24 (17-59) U/L ALT 37 (21-72) U/L Alkaline Phosphatase 62 (38-126) U/L Total Creatine Kinase 69 (55-170) U/L CK-MB (CK-2) 0.4 (0.0-2.4) ng/mL CK-MB (CK-2) Rel Index 0.6 Total Protein 7.3 (6.3-8.2) g/dL Albumin 4.6 (3.5-5.0) g/dL Amylase 70 (30-110) U/L Lipase 308 H (23-300) U/L Urine Color Urine Appearance (Clear) Urine pH (5.0-8.0) Ur Specific [place] (1.001-1.035) Urine Protein (Negative) Urine Glucose (UA) (Negative) Urine Ketones (Negative) Urine Blood (Negative) Urine Nitrite (Negative) Urine Bilirubin (Negative) Urine Urobilinogen (<2.0) mg/dL Ur Leukocyte Esterase (Negative) Urine Opiates Screen (NotDetected) Ur Oxycodone Screen (NotDetected) Urine Methadone Screen (NotDetected) Ur Propoxyphene Screen (NotDetected) Ur Barbiturates Screen (NotDetected) U Tricyclic Antidepress (NotDetected) Ur Phencyclidine Scrn (NotDetected) Ur Amphetamines Screen (NotDetected) U Methamphetamines Scrn (NotDetected) U Benzodiazepines Scrn (NotDetected) Urine Cocaine Screen (NotDetected) U Marijuana (THC) Screen (NotDetected) 12/30/17 Range/Units 19:31 WBC (3.8-10.6) k/uL RBC (4.30-5.90) m/uL Hgb (13.0-17.5) gm/dL Hct (39.0-53.0) % MCV (80.0-100.0) fL MCH (25.0-35.0) pg MCHC (31.0-37.0) g/dL RDW (11.5-15.5) % Plt Count (150-450) k/uL Neutrophils % % Lymphocytes % % Monocytes % % Eosinophils % % Basophils % % Neutrophils # (1.3-7.7) k/uL Lymphocytes # (1.0-4.8) k/uL Monocytes # (0-1.0) k/uL Eosinophils # (0-0.7) k/uL Basophils # (0-0.2) k/uL Sodium (137-145) mmol/L Potassium (3.5-5.1) mmol/L Chloride (98-107) mmol/L Carbon Dioxide (22-30) mmol/L Anion Gap mmol/L BUN (9-20) mg/dL Creatinine (0.66-1.25) mg/dL Est GFR (CKD-EPI)AfAm (>60 ml/min/1.73 sqM) Est GFR (CKD-EPI)NonAf (>60 ml/min/1.73 sqM) Glucose (74-99) mg/dL Calcium (8.4-10.2) mg/dL Magnesium (1.6-2.3) mg/dL Total Bilirubin (0.2-1.3) mg/dL AST (17-59) U/L ALT (21-72) U/L Alkaline Phosphatase (38-126) U/L Total Creatine Kinase (55-170) U/L CK-MB (CK-2) (0.0-2.4) ng/mL CK-MB (CK-2) Rel Index Total Protein (6.3-8.2) g/dL Albumin (3.5-5.0) g/dL Amylase (30-110) U/L Lipase (23-300) U/L Urine Color Yellow Urine Appearance Clear (Clear) Urine pH 6.0 (5.0-8.0) Ur Specific [place] 1.026 (1.001-1.035) Urine Protein Trace H (Negative) Urine Glucose (UA) Negative (Negative) Urine Ketones Negative (Negative) Urine Blood Negative (Negative) Urine Nitrite Negative (Negative) Urine Bilirubin Negative (Negative) Urine Urobilinogen <2.0 (<2.0) mg/dL Ur Leukocyte Esterase Negative (Negative) Urine Opiates Screen Not Detected (NotDetected) Ur Oxycodone Screen Not Detected (NotDetected) Urine Methadone Screen Not Detected (NotDetected) Ur Propoxyphene Screen Not Detected (NotDetected) Ur Barbiturates Screen Not Detected (NotDetected) U Tricyclic Antidepress Detected H (NotDetected) Ur Phencyclidine Scrn Not Detected (NotDetected) Ur Amphetamines Screen Not Detected (NotDetected) U Methamphetamines Scrn Not Detected (NotDetected) U Benzodiazepines Scrn Detected H (NotDetected) Urine Cocaine Screen Not Detected (NotDetected) U Marijuana (THC) Screen Detected H (NotDetected) - Radiology Data Radiology results: report reviewed (I did review the imaging no acute findings patient refused the rib x-rays.), image reviewed Disposition Clinical Impression: Acute psychosis Disposition: TRANSFER TO PSYCH HOSP/UNIT Condition: Stable Referrals: Manoj Smiley MD [Primary Care Provider] - 1-2 days
[2017-12-30 19:44] LABS: Basophils # (A) 0.1 k/uL (0-0.2); Basophils % (A) 1 %; Eosinophils # (A) 0.4 k/uL (0-0.7); Eosinophils % (A) 5 %; HCT 42.7 % (39.0-53.0); Lymphocytes # (A) 2.8 k/uL (1.0-4.8); Lymphocytes % (A) 31 %; MCHC 32.9 g/dL (31.0-37.0); MCV 85.1 fL (80.0-100.0); Mean Platelet Volume 6.8; Monocytes # (A) 0.6 k/uL (0-1.0); Monocytes % (A) 6 %; Neutrophils % (A) 55 %; Platelet Count 448 k/uL (150-450); RBC 5.01 m/uL (4.30-5.90); RDW 13.8 % (11.5-15.5); WBC 9.1 k/uL (3.8-10.6)
[2017-12-30 20:02] LABS: ALT 37 U/L (21-72); AST 24 U/L (17-59); Albumin 4.6 g/dL (3.5-5.0); Alkaline Phosphatase 62 U/L (38-126); Amylase 70 U/L (30-110); Anion Gap 14 mmol/L; Blood Urea Nitrogen 20 mg/dL (9-20); Calcium 10.2 mg/dL (8.4-10.2); Carbon Dioxide 23 mmol/L (22-30); Chloride 107 mmol/L (98-107); Glucose 113 mg/dL (74-99); Lipase 308 U/L (23-300); Magnesium 1.8 mg/dL (1.6-2.3); Potassium 4.9 mmol/L (3.5-5.1); Sodium 144 mmol/L (137-145); Total Bilirubin 0.5 mg/dL (0.2-1.3); Total Protein 7.3 g/dL (6.3-8.2)
--- NOTE | 2017-12-30 20:09 | XR ---
EXAMINATION TYPE: XR chest 1V DATE OF EXAM: 12/30/2017 COMPARISON: NONE INDICATION: Pain TECHNIQUE: Single frontal view of the chest is obtained. FINDINGS: The heart size is normal. The pulmonary vasculature is normal. The lungs are clear. No pneumothorax is evident. No displaced rib fractures are evident on the chest study. Patient refuse d the rib study. IMPRESSION: 1. No acute pulmonary process.
[2017-12-30 20:16] LABS: Creatine Kinase MB 0.4 ng/mL (0.0-2.4)
[2017-12-30 20:38] LABS: Appearance,Urine Clear (Clear); Bilirubin,Urine Negative (Negative); Blood,Urine Negative (Negative); Color,Urine Yellow; Glucose,Urine (UA) Negative (Negative); Ketones,Urine Negative (Negative); Leukocyte Esterase,Urine Negative (Negative); Nitrite,Urine Negative (Negative); Protein,Urine Trace (Negative); Specific Gravity,Urine 1.026 (1.001-1.035); Urobilinogen,Urine <2.0 mg/dL (<2.0)
[2017-12-30 20:47] LABS: Amphetamine Screen,Urine Not Detected (NotDetected); Barbiturate Screen,Urine Not Detected (NotDetected); Benzodiazepines Screen,Urine Detected (NotDetected); Cocaine Screen,Urine Not Detected (NotDetected); Methadone Screen, Urine Not Detected (NotDetected); Opiate Screen,Urine Not Detected (NotDetected); Oxycodone Screen, Urine Not Detected (NotDetected); Phencyclidine Screen,Urine Not Detected (NotDetected); Tricyclic Antidepressant,Urine Detected (NotDetected); Urn Cannabinoid Scrn Detected (NotDetected)
[2017-12-30] MEDS ORDERED: MAGNESIUM HYDROXIDE 2,400 MG/10 ML CUP PO PRN (22:47)
[2017-12-30] MEDS ORDERED: FLUTICASONE 50MCG/SPRAY NASAL 16GM EA NOSTRIL PRN (22:49)
[2017-12-30] MEDS ORDERED: LORazepam 2 MG/ML INJ IM PRN (22:51)
[2017-12-30 23:46] VITALS: BMI 28.4
[2017-12-31] MEDS: QUEtiapine 100 MG TAB PO SCH ×2 (00:01→21:29)
[2017-12-31] MEDS: MAG HYDROX/AL HYDROX/SIMETH 30 ML CUP PO PRN ×3 (00:08→15:02)
[2017-12-31] MEDS: ACETAMINOPHEN TAB 325 MG TAB PO PRN ×3 (06:32→21:54)
[2017-12-31] MEDS: PANTOPRAZOLE 40 MG TABLET PO SCH ×2 (08:35→18:42)
--- NOTE | 2017-12-31 13:20 | P.HP ---
Psychiatric H&P - . H&P Date: 12/31/17 History & Physical: IDENTIFYING DATA: The patient is a 57-year-old male readmitted to the psychiatric unit on day after discharge. HISTORY OF PRESENT ILLNESS: His brought him to the emergency department and completed a Petition for hospitalization that read "Ramakrishna has been very paranoid. Focused on God talking to him. Paranoid about foods. Always concerned he is dying. Bizarre behavior since leaving hospital." I reviewed the medical record, interviewed the patient and spoke to his on the telephone. He denied problems or concerns. He stated that he after left the hospital, he smoked cigarettes and went fishing. His asked him to go back to the hospital so he complied. During our conversation he complained about afriend. He stated that the friend had given him a "computer chip" and while he was home gave him a "cell phone." He asked his give the "computer chip" and "cell phone" to the police because he believes that there is illegal material on the computer chip. He alleged that the "cell phone" contains police and FBI information. As in prior meetings he was religiously preoccupied and referenced and quoted the Bible. He admitted to God speaking with him but I could not determine if the experience represented true auditory hallucinations. He denied visual or olfactory hallucinations. He denied ideas reference, thought insertion, thought broadcasting or thought control. He denied feeling depressed or having thoughts of or suicide. I spoke with his Yamel. She stated that on the way home from the hospital he talked about "Shakir Thomas again." She stated that he was waving his arms and stated that "Shakir Rojas" owned all the property that they passed on the way home. He was suspicious about drinking coffee and made comments that he is concerned that it could be "doped." The most distressing event appears to have occurred during the child protective services visit. The rehabilitation construction specialist came to her home on 12/30/2017 to evaluate the safety of the children after his discharge from hospital. During the meeting his stated that he talked about hearing the voice of God and being an emissary of God. The rehabilitation construction specialist became concerned and told his that she is concerned about the children's safety. She allegedly stated that Ramakrishna needs continued psychiatric treatment. The rehabilitation construction specialist told Yamel that she was concerned that Ramakrishna could harm the children. Yamel stated that he would never harm to children and has never had a history of violence. During the interview Yamel described other behaviors to demonstrate his paranoia. For example, he had 12 cameras installed in their property because to view all areas of the property and know whereabouts of his family "at all times". He has periods where he would not eat or drink because the food and drinks are poisoned. He would not allow his daughter to attend a class trip because he was "afraid". He is pressuring his to withdraw the children from school concerned about their safety and education. He wishes to "home school" children but she is skeptical because of his educational limitations. She also stated that he remains concerned that his body was somehow damage where he received x-rays at a [facility]. His stated when he returned home he was smoking marijuana "because he has a marijuana license". Although she attempted to remove old medications from the house he did have access to trazodone and Xanax. PAST PSYCHIATRIC HISTORY: He has a history of mental illness and multiple psychiatric hospitalizations. He was discharged from our unit on 12/30/2017 after a 11 day length of stay. His discharge diagnosis was a schizoaffective disorder and his discharge medication included Seroquel 20 mg at bedtime. PAST MEDICAL HISTORY: His history of hernia repair and tonsillectomy ALLERGIES: Oxycodone. SUBSTANCE USE HISTORY: He has a history of marijuana use and currently has a "medical marijuana license" for the treatment of purported chronic pain. He denied use of other drugs to get high, help him sleep or changes mood. He had been treated with opiate pain medications for several years for complaints of leg pain. A primary care provider recently discontinued these medications concerned about the chronic use. His UDS was positive for cannabinoids, benzodiazepines and tricyclic antidepressants.. FAMILY PSYCHIATRIC/SUBSTANCE USE HISTORY: He is unaware of a family history of mental illness. LEGAL HISTORY: He has current charges for domestic violence over an incident with neighbors.. SOCIAL HISTORY: He was born and raised in [place]. He has one living brother and 2 brothers. He lives with his and 2 children in [facility]. His son is 4 years old and his daughters 10 years old. This is his second marriage. He has 3 other children from prior marriages and vomiting.. He is currently unemployed and receives social security disability. He held unskilled and semiskilled jobs. He graduated from high school but alleges that he is unable to read or write.. MENTAL STATUS EXAM: He presented as a casually groomed casually dressed male who was pleasant on approach. He made eye contact and attended the interview. He had no distinguishing features or prominent physical abnormalities. He had a blunted facial expression. He was alert and oriented to person, place and time. He showed no abnormality of psychomotor activity. He had a normal gait. His speech was spontaneous with normal rate, rhythm and volume. His affect was blunted but stable and appropriate. He denied suicidal ideation or wishes. He denied homicidal ideation. He denied depressive cognitions such as hopelessness, helplessness or worthlessness. He ruminated about the friend who gave him the "computer chip" and the "cell phone". He described paranoid ideation and suggested a paranoid delusion regarding his friend. He was religiously preoccupied and quoted from the Bible frequently during the meeting. His thinking was concrete. Associations were coherent and logical. He did not demonstrate clang associations, perseverations, neologisms or blocking. He admitted to "hearing the voice of God" but was uncertain whether this experience medical billing representative that she will auditory hallucination. He denied experiencing visual or olfactory hallucinations. Global impression of intellect is average to below. He has limited awareness or understanding of his illness. We completed the Mini-Mental state exam. His total score was 28. He only had difficulty with the serial sevens. When I asked him to write a sentence, he wrote "Pedro Luis is coming" in large script. STRENGTHS: Supportive family, good physical health. WEAKNESSES: Limited insight or understanding of his mental illness. IMPRESSION: He is a 57-year-old male readmitted to the [facility] under petition completed by his describing continued paranoia. During the visit by the child protective services worker he made statements that concerned the rehabilitation construction specialist as to the safety of the children. He has no insight or understanding of the reason for this hospitalization or the concerns by the child protective social services designee. He is religiously preoccupied , paranoid and expressed fragmented delusional beliefs. He requires continued inpatient psychiatric hospitalization including full therapeutic doses of antipsychotic medication. We will proceed with the involuntary hospitalization because of his resistance, during the past admission, to take full therapeutic doses of antipsychotic medications. Consider medication that may be administered as long acting injectable. PRINCIPLE DIAGNOSIS: Schizoaffective disorder, rule out schizophrenia, marijuana use disorder RECOMMENDATION: Admit to the psychiatric unit, completed the second Clinical certificate and proceed with the application for involuntary hospitalization. Increase Seroquel to 300 mg at bedtime. Discussed changing to another antipsychotic such as paliperidone, aripiprazole or Haldol. If you've is unwilling to give us consent to an alternate antipsychotic then we'll continue the Seroquel until received the involuntary treatment order. Consult medicine service for initial physical exam and medical history. Evaluate clinical status and response to treatment daily basis. Allergies Allergy/AdvReac Type Severity Reaction Status Date / Time oxycodone [From OxyContin] Allergy Rash/Hives Verified 12/30/17 20:01 Vital Signs Temp 97.6 F 12/31/17 06:34 Pulse 103 H 12/31/17 06:34 Resp 18 12/31/17 06:34 BP 135/71 12/31/17 06:34 Pulse Ox 97 12/30/17 23:40 Intake & Output 12/30/17 12/31/17 12/31/17 18:59 06:59 18:59 Weight 81.647 kg 84.8 kg Laboratory Last Values WBC 9.1 k/uL (3.8-10.6) 12/30/17 19:31 RBC 5.01 m/uL (4.30-5.90) 12/30/17 19:31 Hgb 14.0 gm/dL (13.0-17.5) 12/30/17 19:31 Hct 42.7 % (39.0-53.0) 12/30/17 19:31 MCV 85.1 fL (80.0-100.0) 12/30/17 19:31 MCH 28.0 pg (25.0-35.0) 12/30/17 19:31 MCHC 32.9 g/dL (31.0-37.0) 12/30/17 19:31 RDW 13.8 % (11.5-15.5) 12/30/17 19:31 Plt Count 448 k/uL (150-450) 12/30/17 19:31 Neutrophils % 55 % 12/30/17 19:31 Lymphocytes % 31 % 12/30/17 19:31 Monocytes % 6 % 12/30/17 19:31 Eosinophils % 5 % 12/30/17 19:31 Basophils % 1 % 12/30/17 19:31 Neutrophils # 5.0 k/uL (1.3-7.7) 12/30/17 19:31 Lymphocytes # 2.8 k/uL (1.0-4.8) 12/30/17 19:31 Monocytes # 0.6 k/uL (0-1.0) 12/30/17 19:31 Eosinophils # 0.4 k/uL (0-0.7) 12/30/17 19:31 Basophils # 0.1 k/uL (0-0.2) 12/30/17 19:31 Sodium 144 mmol/L (137-145) 12/30/17 19:31 Potassium 4.9 mmol/L (3.5-5.1) 12/30/17 19:31 Chloride 107 mmol/L (98-107) 12/30/17 19:31 Carbon Dioxide 23 mmol/L (22-30) 12/30/17 19:31 Anion Gap 14 mmol/L 12/30/17 19:31 BUN 20 mg/dL (9-20) 12/30/17 19:31 Creatinine 0.76 mg/dL (0.66-1.25) 12/30/17 19:31 Est GFR (CKD-EPI)AfAm >90 (>60 ml/min/1.73 sqM) 12/30/17 19:31 Est GFR (CKD-EPI)NonAf >90 (>60 ml/min/1.73 sqM) 12/30/17 19:31 Glucose 113 mg/dL (74-99) H 12/30/17 19:31 Calcium 10.2 mg/dL (8.4-10.2) 12/30/17 19:31 Magnesium 1.8 mg/dL (1.6-2.3) 12/30/17 19:31 Total Bilirubin 0.5 mg/dL (0.2-1.3) 12/30/17 19:31 AST 24 U/L (17-59) 12/30/17 19:31 ALT 37 U/L (21-72) 12/30/17 19:31 Alkaline Phosphatase 62 U/L (38-126) 12/30/17 19:31 Total Creatine Kinase 69 U/L (55-170) 12/30/17 19:31 CK-MB (CK-2) 0.4 ng/mL (0.0-2.4) 12/30/17 19: CK-MB (CK-2) Rel Index 0.6 12/30/17 19: Total Protein 7.3 g/dL (6.3-8.2) 12/30/17 19: Albumin 4.6 g/dL (3.5-5.0) 12/30/17 19: Amylase 70 U/L (30-110) 12/30/17 19: Lipase 308 U/L (23-300) H 12/30/17 19:31 Urine Color Yellow 12/30/17 19: Urine Appearance Clear (Clear) 12/30/17 19: Urine pH 6.0 (5.0-8.0) 12/30/17 19: Ur Specific [place] 1.026 (1.001-1.035) 12/30/17 19: Urine Protein Trace (Negative) H 12/30/17 19:31 Urine Glucose (UA) Negative (Negative) 12/30/17 19: Urine Ketones Negative (Negative) 12/30/17 19: Urine Blood Negative (Negative) 12/30/17 19:31 Urine Nitrite Negative (Negative) 12/30/17 19: Urine Bilirubin Negative (Negative) 12/30/17 19: Urine Urobilinogen <2.0 mg/dL (<2.0) 12/30/17 19: Ur Leukocyte Esterase Negative (Negative) 12/30/17 19:31 Urine Opiates Screen Not Detected (NotDetected) 12/30/17 19:31 Ur Oxycodone Screen Not Detected (NotDetected) 12/30/17 19:31 Urine Methadone Screen Not Detected (NotDetected) 12/30/17 19:31 Ur Propoxyphene Screen Not Detected (NotDetected) 12/30/17 19:31 Ur Barbiturates Screen Not Detected (NotDetected) 12/30/17 19:31 U Tricyclic Antidepress Detected (NotDetected) H 12/30/17 19:31 Ur Phencyclidine Scrn Not Detected (NotDetected) 12/30/17 19:31 Ur Amphetamines Screen Not Detected (NotDetected) 12/30/17 19:31 U Methamphetamines Scrn Not Detected (NotDetected) 12/30/17 19:31 U Benzodiazepines Scrn Detected (NotDetected) H 12/30/17 19:31 Urine Cocaine Screen Not Detected (NotDetected) 12/30/17 19:31 U Marijuana (THC) Screen Detected (NotDetected) H 12/30/17 19:31 12/31/17 09:15 12/31/17 11:32 12/31/17 12:39
--- NOTE | 2017-12-31 14:16 | P.CONS ---
History of Present Illness - Reason for Consult Tachycardia, minimally elevated lipase - History of Present Illness 37-year-old gentleman admitted for schizoaffective disorder. Patient has minimally elevated lipase denied any abdominal pain but patient is comparing of chest pain which appears to be mostly gastroesophageal reflux disease but I will obtain EKG he appears to have chronic the epigastric and retrosternal burning sensation patient is already on proton per millimeter which will be continued. We'll also obtain a troponin. I suspicion is extremely low risk cardiac pain because of which I do not believe will need to repeat troponins and this has been going on for some time. Otherwise denied any significant symptoms Review of Systems REVIEW OF SYSTEMS: CONSTITUTIONAL: No fever, no malaise, no fatigue. HEENT: No recent visual problems or hearing problems. Denied any sore throat. CARDIOVASCULAR: No orthopnea, PND, no palpitations, no syncope. PULMONARY: No shortness of breath, no cough, no hemoptysis. GASTROINTESTINAL: No diarrhea, no nausea, no vomiting, no abdominal pain. Normoactive bowel sounds. NEUROLOGICAL: No headaches, no weakness, no numbness. HEMATOLOGICAL: Denies any bleeding or petechiae. GENITOURINARY: Denies any burning micturition, frequency, or urgency. MUSCULOSKELETAL/RHEUMATOLOGICAL: Denies any joint pain, swelling, or any muscle pain. ENDOCRINE: Denies any polyuria or polydipsia. The rest of the 14-point review of systems is negative. Past Medical History Past Medical History: No Reported History History of Any Multi-Drug Resistant Organisms: None Reported Past Surgical History: Hernia Repair, Orthopedic Surgery, Tonsillectomy Additional Past Surgical History / Comment(s): skin graft to lower right leg x2 Past Psychological History: Bipolar, Schizophrenia Smoking Status: Former smoker Past Alcohol Use History: None Reported Past Drug Use History: Marijuana Additional Drug Use History / Comment(s): Pt states he stills smokes marijuana and has a medical marijuana card Medications and Allergies Home Medications Medication Instructions Recorded Confirmed Type Fluticasone Propionate [Flonase 1 spray EA NOSTRIL DAILY PRN 12/20/17 12/30/17 History Allergy Relief] Omeprazole 40 mg PO BID 12/20/17 12/30/17 History Tamsulosin [Flomax] 0.8 mg PO W/SUPPER 12/20/17 12/30/17 History QUEtiapine [SEROquel] 200 mg PO HS #30 tab 12/29/17 12/30/17 Rx Allergies Allergy/AdvReac Type Severity Reaction Status Date / Time oxycodone [From OxyContin] Allergy Rash/Hives Verified 12/30/17 20:01 Physical Exam Vitals: Vital Signs Temp Pulse Pulse Resp BP BP Pulse Ox 12/31/17 06:34 97.6 F 103 H 18 135/71 12/30/17 23:40 99.2 F 76 18 141/81 97 12/30/17 23:09 99.2 F 76 18 141/81 12/30/17 22:56 99 F 74 16 164/88 98 12/30/17 20:08 98.5 F 12/30/17 18:31 100.9 F H 120 H 18 144/94 97 Intake and Output 12/30/17 12/31/17 12/31/17 22:59 06:59 14:59 Other: Weight 81.647 kg 84.8 kg PHYSICAL EXAMINATION: GENERAL: The patient is alert and oriented x3, not in any acute distress. Well developed, well nourished. HEENT: Pupils are round and equally reacting to light. EOMI. No scleral icterus. No conjunctival pallor. Normocephalic, atraumatic. No pharyngeal erythema. No thyromegaly. CARDIOVASCULAR: S1 and S2 present. No murmurs, rubs, or gallops. Tachycardic sinus rhythm PULMONARY: Chest is clear to auscultation, no wheezing or crackles. ABDOMEN: Soft, nontender, nondistended, normoactive bowel sounds. No palpable organomegaly. MUSCULOSKELETAL: No joint swelling or deformity. EXTREMITIES: No cyanosis, clubbing, or pedal edema. NEUROLOGICAL: Gross neurological examination did not reveal any focal deficits. SKIN: No rashes. Results CBC & Chem 7: 12/30/17 19:31 12/30/17 19:31 Labs: Abnormal Lab Results - Last 24 Hours (Table) 12/30/17 12/30/17 Range/Units 19:31 19:31 Glucose 113 H (74-99) mg/dL Lipase 308 H (23-300) U/L Urine Protein Trace H (Negative) U Tricyclic Antidepress Detected H (NotDetected) U Benzodiazepines Scrn Detected H (NotDetected) U Marijuana (THC) Screen Detected H (NotDetected) Assessment and Plan Plan: -Tachycardia: Secondary to anxiety competent of schizoaffective disorder. 5 further evaluation man as per primary service -Epigastric burning sensation probably due to gastritis further management with checking troponin and EKG as mentioned above. Patient is on proton pump inhibitor which will be continued -Marijuana use: Counseling was provided
[2017-12-31] MEDS: TAMSULOSIN 0.4 MG CAP.ER.24H PO SCH (18:42)
[2018-01-01] MEDS: PANTOPRAZOLE 40 MG TABLET PO SCH ×2 (07:35→17:01)
[2018-01-01] MEDS: ACETAMINOPHEN TAB 325 MG TAB PO PRN (07:35)
[2018-01-01] MEDS ORDERED: HYDROCORTISONE SUPPOSITORY 25 MG SUPP RECTAL STA (11:16)
--- NOTE | 2018-01-01 11:32 | P.PN ---
Subjective Progress Note Date: 01/01/18 Principal diagnosis: Schizoaffective disorder I reviewed the medical record, interviewed the patient and discuss his treatment and treatment plan during team meeting. He met with his estate planning attorney despite morning but did not do for the probate hearing for involuntary hospitalization. Apparently, manufacturer representative some [facility] were not present at meeting. Medical consult appreciated. Laboratory studies reviewed. He complained of rectal itching and burning and requested something for irritation. We discussed the reason for his readmission. He appeared unaware that his brought him in hospital at the behest of the production counter for child protective services. He had no understanding awareness of how his behavior caused the production counter's concern. He believes that he must preach and communicate his belief in God. We discussed his treatment. He agreed to a trial of Abilify and receiving monthly injections of Abilify. Objective - Vital Signs Vital signs: Vital Signs Temp 98.0 F 01/01/18 06:58 Pulse 94 01/01/18 06:58 Resp 16 01/01/18 06:58 BP 127/73 01/01/18 06:58 Pulse Ox 97 12/30/17 23:40 - Psychiatric Psychiatric Comment(s): He presented as a neatly groomed and casually dressed elderly male who was pleasant on approach. He maintained eye contact and attended to the interview. He had no prominent physical abnormalities or distinguishing features. He had a serious facial expression. He was alert and oriented to person, place and time. He showed no abnormality of psychomotor activity. He was not restless slowed or displayed abnormal movements. His speech was spontaneous with slight decrease in rate but normal rhythm and volume. His affect was blunted but stable and appropriate. He was not angry, irritable or euphoric. He denied suicidal ideation or wishes. He denied homicidal ideation. He denied feeling hopeless, helpless or worthless. He was religiously preoccupied and talked about communicating with God. I could not determine whether his experience represented a true auditory hallucination. However, he did not appear to be responding to internal stimuli. He did not express ideas reference or clear paranoid ideation during our interview. His thinking was concrete and his associations were logical coherent. He perseverated on orthodox themes but didn't express clang associations or displayed blocking. - Labs CBC & Chem 7: 12/30/17 19:31 12/30/17 19:31 Assessment and Plan Assessment: Overall, he appears moderately mentally ill and minimally improve from admission. (1) Schizoaffective disorder Current Visit: Yes Status: Chronic Priority: High Code(s): F25.9 - SCHIZOAFFECTIVE DISORDER, UNSPECIFIED SNOMED Code(s): 74246945 Plan: Continue inpatient hospitalization pending the probate hearing for involuntary hospitalization. Decrease Seroquel to 200 mg at bedtime and begin Abilify 10 mg by mouth at bedtime. If he shows no adverse effects to the oral Abilify and begin Abilify Maintena 400 mg IM, discontinue Seroquel and continue oral Abilify as per protocol. Anusol for rectal complaints. Continue participation in therapeutic groups and activities. Evaluate clinical status response to treatment on a daily basis.
[2018-01-01] MEDS: TAMSULOSIN 0.4 MG CAP.ER.24H PO SCH (17:01)
[2018-01-01] MEDS: ARIPiprazole 10 MG TAB PO SCH (21:02)
[2018-01-01] MEDS: QUEtiapine 100 MG TAB PO SCH (21:02)
[2018-01-02] MEDS: PANTOPRAZOLE 40 MG TABLET PO SCH ×2 (08:27→17:03)
[2018-01-02] MEDS: MAG HYDROX/AL HYDROX/SIMETH 30 ML CUP PO PRN (09:16)
[2018-01-02] MEDS: ACETAMINOPHEN TAB 325 MG TAB PO PRN ×2 (10:34→17:02)
[2018-01-02] MEDS: TAMSULOSIN 0.4 MG CAP.ER.24H PO SCH (16:44)
[2018-01-02] MEDS: QUEtiapine 100 MG TAB PO SCH (20:20)
[2018-01-02] MEDS: ARIPiprazole 10 MG TAB PO SCH (20:20)
--- NOTE | 2018-01-02 20:47 | PN ---
PROGRESS NOTE DATE OF SERVICE: 01/02/2018. CHIEF COMPLAINT: The patient was admitted on petition for an involuntary hospitalization. He was making delusional statements. He had paranoid thinking and disorganized behavior. INTERVAL HISTORY: Patient has been doing fairly well overall. He had a quiet evening last night. He slept 5-1/2 hours. Today he has been up. He comes out in the day area. He does not interact too much with others. He has been attending most groups and seems to be appropriate in the groups. He has not had any difficult behavior. He has been cooperative. He has not had change in his general health. He tolerates his psychotropic medications. MENTAL STATUS: Patient gave good eye contact. Psychomotor activity was a little slowed. Speech was clear. He answered questions with brief responses. He tended to disagree with what had been documented as issues precipitating this hospitalization. His affect was a little constricted. His mood was quiet. He did not appear to be significantly distressed. ASSESSMENT: I will continue the current diagnosis and treatment plan. I will continue psychotropic medications the same. He has been started on Abilify 10 mg a day and continues on Seroquel 200 mg a day as his psychotropic medications. I discussed side effects and some longer-term treatment issues related to antipsychotic medications. We will continue to focus on stabilization and discharge planning. NORIS / GUILLERMO: [id number] /
[2018-01-02 22:03] LABS: Appearance,Urine Clear (Clear); Bilirubin,Urine Negative (Negative); Blood,Urine Negative (Negative); Color,Urine Light Yellow; Glucose,Urine (UA) Negative (Negative); Ketones,Urine Negative (Negative); Leukocyte Esterase,Urine Negative (Negative); Nitrite,Urine Negative (Negative); Protein,Urine Negative (Negative); Specific Gravity,Urine 1.009 (1.001-1.035); Urobilinogen,Urine <2.0 mg/dL (<2.0)
[2018-01-03] MEDS: PANTOPRAZOLE 40 MG TABLET PO SCH ×2 (08:57→17:34)
[2018-01-03] MEDS: ACETAMINOPHEN TAB 325 MG TAB PO PRN ×4 (08:58→21:23)
[2018-01-03] MEDS: TAMSULOSIN 0.4 MG CAP.ER.24H PO SCH (12:31)
--- NOTE | 2018-01-03 15:52 | PN ---
PROGRESS NOTE DATE OF SERVICE: 01/03/2018. CHIEF COMPLAINT: The patient was admitted on [facility] for involuntary hospitalization. He was making delusional statements. He had paranoid thinking and disorganized behavior. INTERVAL HISTORY: The patient has been doing fairly well overall. He had a quiet evening last night. He had an unfortunate incident around midnight. He apparently had gotten up to go to the bathroom and felt dizzy and then had a fall. Neuro checks were initiated. He did not appear to suffer any injury. He otherwise slept fairly well. Today, he has been up. He comes out in the day area. He does seem to be up and down in his mood. It is noted that he will often say things are fine and he will minimize any problems though from time to time he will become tearful and talk about things such as missing his family or hoping that medications will help him "soon." He has had some intermittent problems with chest pain. He had a previous cardiac workup that was negative. I refer the reader to the nursing note of 01/03/2018 at 1418. He was complaining of chest pain. He again seemed to indicate some problems with anxiety. He was tearful. He made references to possibly fearing that he was dying. When I saw the patient he minimized any problems in regards to mood or anxiety. He said he was doing well. He was hopeful to be discharged soon. He made comments that he understood about the court issue and that he was willing to sign a deferral and was comfortable taking medications. MENTAL STATUS: Patient gave good eye contact. He smiled. He answered questions directly. He made a few spontaneous comments. His affect was in a reasonable range at the time that I interviewed him. His mood was even. He did not appear to be distressed. This was in variance with how he was observed by nursing a short while prior to my seeing him. ASSESSMENT: I will continue the current diagnosis and treatment plan. I will continue psychotropic medications the same, though we may need to look at increasing frequency of Ativan. We will continue to monitor for any potential cardiac issues. We will continue to focus on stabilization and discharge planning. MMSPL / TITAN: [id number] /
[2018-01-03] MEDS: ARIPiprazole 10 MG TAB PO SCH (20:49)
[2018-01-03] MEDS: hydrOXYzine PAMOATE 25 MG CAP PO PRN (20:50)
[2018-01-04] MEDS: ACETAMINOPHEN TAB 325 MG TAB PO PRN ×5 (02:12→21:28)
[2018-01-04] MEDS: TAMSULOSIN 0.4 MG CAP.ER.24H PO SCH (08:43)
[2018-01-04] MEDS: PANTOPRAZOLE 40 MG TABLET PO SCH ×2 (08:43→17:55)
[2018-01-04] MEDS: hydrOXYzine PAMOATE 25 MG CAP PO PRN ×2 (08:43→21:13)
--- NOTE | 2018-01-04 13:51 | P.PN ---
Subjective Progress Note Date: 01/04/18 Principal diagnosis: Schizoaffective disorder I reviewed the medical record, interviewed the patient and discuss his treatment and treatment plan during team meeting. He complained of insomnia last night and nursing staff noted that he only slept 2 hours last night. He attributes the insomnia to temperature of his room. He complained that he was "extremely cold" and neither he nor staff could adjust the temperature of the room. We requested a room change. He complained of chest pain yesterday and had EKG and serial troponins. EKG showed normal sinus rhythm with no evidence of ischemia. The 3 troponins were less than 0.012. He is anxious about the upcoming probate hearing and requested to meet with his fitness manager again to defer. He denied side effects to Abilify and an agreed with the plan to discontinue Seroquel and proceed with the [facility]. Objective - Vital Signs Vital signs: Vital Signs Temp 98.4 F 01/04/18 01:20 Pulse 83 01/04/18 01:20 Resp 16 01/04/18 01:20 BP 132/72 01/04/18 01:20 Pulse Ox 98 01/03/18 14:15 Intake & Output 01/03/18 01/04/18 01/04/18 18:59 06:59 18:59 Weight 85.9 kg - Psychiatric Psychiatric Comment(s): He presented as a neatly groomed and casually dressed elderly male who was pleasant on approach. He maintained eye contact and attended to the interview. He had no prominent physical abnormalities or distinguishing features. He had a serious facial expression. He was alert and oriented to person, place and time. He showed no abnormality of psychomotor activity. He was not restless, slowed or displayed abnormal movements. His speech was spontaneous with normal rate but normal rhythm and volume. His affect was blunted but stable and appropriate. He was anxious and not angry, irritable or euphoric. He denied suicidal ideation or wishes. He denied homicidal ideation. He denied feeling hopeless, helpless or worthless. He was religiously preoccupied but did not ruminated about caodaism themes or topics. He did not appear to be responding to internal stimuli. He did not express ideas reference or clear paranoid ideation during our interview. His thinking was concrete and his associations were logical coherent. - Labs CBC & Chem 7: 12/30/17 19:31 12/30/17 19:31 Assessment and Plan Assessment: Overall, he appears moderately mentally ill and minimally improve from admission. (1) Schizoaffective disorder Current Visit: Yes Status: Chronic Priority: High Code(s): F25.9 - SCHIZOAFFECTIVE DISORDER, UNSPECIFIED SNOMED Code(s): 37305303 Plan: Continue inpatient hospitalization pending the probate hearing for involuntary hospitalization. Nursing will change his room assignment. The refinery operator helper crude unit spoke with probate Court and the patient will meet his state attorney tomorrow at 9: 30 AM to discuss deferring the probate hearing. Discontinue Seroquel and continue Abilify 10 mg by mouth at bedtime. Begin Abilify Maintena 400 mg IM. Continue participation in therapeutic groups and activities. Evaluate clinical status response to treatment on a daily basis.
[2018-01-04] MEDS ORDERED: ARIPiprazole 400 MG VIAL (NO CHARGE) IM ONE (14:00)
[2018-01-04] MEDS: MAG HYDROX/AL HYDROX/SIMETH 30 ML CUP PO PRN (21:13)
[2018-01-04] MEDS: ARIPiprazole 10 MG TAB PO SCH (21:13)
[2018-01-05] MEDS: ACETAMINOPHEN TAB 325 MG TAB PO PRN ×3 (03:41→12:11)
[2018-01-05] MEDS: MAG HYDROX/AL HYDROX/SIMETH 30 ML CUP PO PRN (03:42)
[2018-01-05 06:32] VITALS: BP 133/72; PULSE 108; RESP 108; TEMP 98.3
[2018-01-05] MEDS: PANTOPRAZOLE 40 MG TABLET PO SCH (08:15)
[2018-01-05] MEDS: TAMSULOSIN 0.4 MG CAP.ER.24H PO SCH (08:15)
--- NOTE | 2018-01-05 13:16 | P.DS ---
Providers Date of admission: 12/30/17 22:44 Attending physician: Clif Nicholas MD Consults: 12/30/17 22:47 Consult Physician Routine Consulting Provider: Eloy Zhao Consult Reason/Comments: H&P for mental health admission Do you want consulting provider notified?: Yes, Notify in am Primary care physician: Manoj Smiley - Discharge Diagnosis(es) (1) Schizoaffective disorder Current Visit: Yes Status: Chronic Priority: High Hospital Course: The patient is a 57-year-old male readmitted to the psychiatric unit for one day of discharge. His brought him to the emergency department and completed a Petition for hospitalization that read "It has been very paranoid. Focused on God talking to him. Paranoid about foods. Always concerned he is dying. Bizarre behavior since leaving the hospital." His describes ongoing paranoia and gave several examples to illustrate his paranoia. However, the admission appears to been prompted by a visit from the hunting guide from child protective services. Prior to the last admission CPS became involved because of the patient's paranoid, disorganized and erratic behavior. During the interview with the hunting guide he was religiously preoccupied and talked about hearing the voice of God and being in any serious God. The human services case manager became concerned and told his that she is concerned about children's safety. She is allegedly told the patient's that he needed continued psychiatric treatment. We admitted him to the psychiatric unit on this care of this marketing writer. Provided a biopsychosocial assessment. The teamcenter consultant audit analyst completed initial physical exam and medical history. The teamcenter consultant and diagnosed tachycardia, an epigastric burning sensation due to gastritis and marijuana use. We completed the second clinical certificate and proceeded with the application for involuntary hospitalization. The patient complied with prescribed medication. We initially resumed Seroquel 200 mg at bedtime. He alleged that he could not tolerate an increased dose due to side effects. As an alternative restarted Abilify 10 mg at bedtime. He denied side effects and we administered the first injection of Abilify Maintena a 400 mg on 01/04/2018. He met with his county attorney and the hunting guide from [facility] and deferred the probate hearing on 01/05/2018. He understood that he would need to continue the oral Abilify for 14 days after the first injection. Time of discharge he presented as a casually groomed casually dressed 57-year- old male who was pleasant on approach. He made eye contact and didn' t and attended to the interview. He had no distinguishing features or prominent physical abnormalities. He had a blunted but bright facial expression. He was alert and oriented to person, place and time. He showed no abnormality of psychomotor activity. He was not agitated or restless. He showed no abnormal movements. His speech was spontaneous with normal rate, rhythm and volume. His affect was blunted, stable and appropriate. He denied suicidal ideation, wishes or homicidal ideation. He denied feeling hopeless, helpless or worthless. He did not express phobias, ideas reference, paranoid ideation or delusional thoughts. He was not religiously preoccupied as he had been earlier in the hospitalization and did not talk on islam themes or quote biblical verse. His thinking was concrete but his associations were coherent, logical and goal directed. He did not express clang associations , perseverations or neologisms. He denied hallucinations and did not appear to be responding to internal stimuli. He is scheduled for the next section of Abilify maintaining a 400 mg on 2017. He will continue with Abilify 10 mg by mouth for 14 days. Patient Condition at Discharge: Stable Plan - Discharge Summary Discharge Rx Participant: No New Discharge Prescriptions: New ARIPiprazole [Abilify] 10 mg PO HS #14 tab Continue Fluticasone Propionate [Flonase Allergy Relief] 1 spray EA NOSTRIL DAILY PRN PRN Reason: Allergy Symptoms Omeprazole 40 mg PO BID #30 capsule. Tamsulosin [Flomax] 0.8 mg PO W/SUPPER #60 cap.er.24h Discontinued QUEtiapine [SEROquel] 200 mg PO HS #30 tab Discharge Medication List Fluticasone Propionate [Flonase Allergy Relief] 1 spray EA NOSTRIL DAILY PRN [History] ARIPiprazole [Abilify] 10 mg PO HS #14 tab 01/05/18 [Rx] Omeprazole 40 mg PO BID #30 capsule. 01/05/18 [Rx] Tamsulosin [Flomax] 0.8 mg PO W/SUPPER #60 cap.er.24h 01/05/18 [Rx] Follow up Appointment(s)/Ref[facility] 1:00 pm (w/ Deidra Fletcher) Manoj Smiley MD [Primary Care Provider] - 1-2 days Patient Instructions/Handouts: Schizoaffective Disorder (DC) Discharge Disposition: HOME SELF-CARE
== END 2018-01-05 13:36 | disposition home or self-care (01) | DRG 885 ==
LOC: EC 18:19 → 3MHU 22:44
PROVIDERS: ADMIT Psychiatry & Neurology Psychiatry; ATTEND Psychiatry & Neurology Psychiatry
DX: F25.9 Schizoaffective disorder, unspecified (principal); F12.90 Cannabis use, unspecified, uncomplicated; R74.8 Abnormal levels of other serum enzymes; G47.00 Insomnia, unspecified; K21.9 Gastro-esophageal reflux disease without esophagitis; F41.9 Anxiety disorder, unspecified; K29.70 Gastritis, unspecified, without bleeding; G89.29 Other chronic pain; M79.606 Pain in leg, unspecified; M79.621 Pain in right upper arm; R10.9 Unspecified abdominal pain; L29.0 Pruritus ani; F17.210 Nicotine dependence, cigarettes, uncomplicated; Z71.6 Tobacco abuse counseling; Z79.51 Long term (current) use of inhaled steroids; Z79.899 Other long term (current) drug therapy; Z91.81 History of falling; Z88.5 Allergy status to narcotic agent
CPT/HCPCS: 36415; 71045; 80053; 80306; 81003; 82075; 82150; 82550; 82553; 83690; 83735; 84484; 85025; 93005; 99285

== ENCOUNTER 2019-02-24 11:51 | Inpatient (IN) | payer MEDICAID, OTHER ==
[2019-02-24 13:28] LABS: Amphetamine Screen,Urine Not Detected (NotDetected); Barbiturate Screen,Urine Not Detected (NotDetected); Benzodiazepines Screen,Urine Detected (NotDetected); Cocaine Screen,Urine Not Detected (NotDetected); Methadone Screen, Urine Not Detected (NotDetected); Opiate Screen,Urine Not Detected (NotDetected); Oxycodone Screen, Urine Not Detected (NotDetected); Phencyclidine Screen,Urine Not Detected (NotDetected); Tricyclic Antidepressant,Urine Not Detected (NotDetected); Urn Cannabinoid Scrn Not Detected (NotDetected)
--- NOTE | 2019-02-24 13:37 | ED ---
Psych HPI - General Chief Complaint: Psychiatric Symptoms Stated Complaint: petition Time Seen by Provider: 02/24/19 11:58 Source: patient, police, RN notes reviewed, old records reviewed Mode of arrival: ambulatory - History of Present Illness Initial Comments: This is a 58-year-old male the ER for evaluation. Patient's brought in by PD for psychiatric evaluation. Patient brought in with petition. Patient is not taking meds, not taking care of himself, is depressed and recently just lasted neighbor Complaint: suicidal ideation, feels depressed -: unknown Associated Psychiatric Symptoms: depression, suicidal ideation History of same: Yes Quality: intermittent Improves With: none Worsens With: none Associated Symptoms: denies other symptoms Treatments Prior to Arrival: placed on mental health hold If Self Harm: admits thoughts of self harm - Related Data Home Medications Medication Instructions Recorded Confirmed Fluticasone Propionate [Flonase 1 spray EA NOSTRIL DAILY PRN 12/20/17 02/24/19 Allergy Relief] ALPRAZolam [Xanax] 0.5 mg PO TID PRN 02/24/19 02/24/19 Previous Rx's Medication Instructions Recorded Omeprazole 40 mg PO BID #30 capsule. 01/05/18 Allergies Allergy/AdvReac Type Severity Reaction Status Date / Time oxycodone [From OxyContin] Allergy Rash/Hives Verified 02/24/19 12:43 Review of Systems ROS Statement: Those systems with pertinent positive or pertinent negative responses have been documented in the HPI. ROS Other: All systems not noted in ROS Statement are negative. Past Medical History Past Medical History: No Reported History History of Any Multi-Drug Resistant Organisms: None Reported Past Surgical History: Hernia Repair, Orthopedic Surgery, Tonsillectomy Additional Past Surgical History / Comment(s): skin graft to lower right leg x2 Past Psychological History: Bipolar, Schizophrenia Smoking Status: Former smoker Past Alcohol Use History: None Reported Past Drug Use History: Marijuana General Exam Limitations: no limitations General appearance: alert, in no apparent distress Head exam: Present: atraumatic, normocephalic, normal inspection Eye exam: Present: normal appearance, PERRL, EOMI. Absent: scleral icterus, conjunctival injection, periorbital swelling ENT exam: Present: normal exam, mucous membranes moist Neck exam: Present: normal inspection. Absent: tenderness, meningismus, lymphadenopathy Respiratory exam: Present: normal lung sounds bilaterally. Absent: respiratory distress, wheezes, rales, rhonchi, stridor Cardiovascular Exam: Present: regular rate, normal rhythm, normal heart sounds. Absent: systolic murmur, diastolic murmur, rubs, gallop, clicks GI/Abdominal exam: Present: soft, normal bowel sounds. Absent: distended, tenderness, guarding, rebound, rigid Extremities exam: Present: normal inspection, full ROM, normal capillary refill. Absent: tenderness, pedal edema, joint swelling, calf tenderness Back exam: Present: normal inspection Neurological exam: Present: alert, oriented X3, CN II-XII intact Psychiatric exam: Present: normal affect, normal mood Skin exam: Present: warm, dry, intact, normal color. Absent: rash Course Vital Signs 02/24/19 11:55 Temperature 97.5 F L Pulse Rate 81 Respiratory 20 Rate Blood Pressure 150/88 O2 Sat by Pulse 99 Oximetry - Reevaluation(s) Reevaluation #1: 02/24/19 13:37 Medical records reviewed and patient's medically clear for psychiatric evaluation Medical Decision Making - Medical Decision Making 58 male to be admitted for inpatient psychiatric evaluation and treatment - Lab Data Lab Results 02/24/19 Range/Units 13:01 Urine Opiates Screen Not Detected (NotDetected) Ur Oxycodone Screen Not Detected (NotDetected) Urine Methadone Screen Not Detected (NotDetected) Ur Propoxyphene Screen Not Detected (NotDetected) Ur Barbiturates Screen Not Detected (NotDetected) U Tricyclic Antidepress Not Detected (NotDetected) Ur Phencyclidine Scrn Not Detected (NotDetected) Ur Amphetamines Screen Not Detected (NotDetected) U Methamphetamines Scrn Not Detected (NotDetected) U Benzodiazepines Scrn Detected H (NotDetected) Urine Cocaine Screen Not Detected (NotDetected) U Marijuana (THC) Screen Not Detected (NotDetected) Disposition Clinical Impression: Bipolar I disorder, most recent episode manic, severe with psychotic features, Schizoaffective disorder, Psychosis, Acute psychosis Disposition: TRANSFER TO PSYCH HOSP/UNIT Condition: Fair Is patient prescribed a controlled substance at d/c from ED?: No Referrals: Manoj Smiley MD [Primary Care Provider] - 1-2 days
[2019-02-24] MEDS ORDERED: MAG HYDROX/AL HYDROX/SIMETH 30 ML CUP PO PRN (17:33)
[2019-02-24] MEDS ORDERED: MAGNESIUM HYDROXIDE 2,400 MG/10 ML CUP PO PRN (17:33)
[2019-02-24] MEDS ORDERED: ZIPRASIDONE 20 MG VIAL IM PRN (17:33)
[2019-02-24 18:26] LABS: Appearance,Urine Clear (Clear); Bilirubin,Urine Negative (Negative); Blood,Urine Negative (Negative); Color,Urine Yellow; Glucose,Urine (UA) Negative (Negative); Ketones,Urine Negative (Negative); Leukocyte Esterase,Urine Negative (Negative); Nitrite,Urine Negative (Negative); PH, Urine 6.5 (5.0-8.0); Protein,Urine Negative (Negative); Specific Gravity,Urine 1.014 (1.001-1.035); Urobilinogen,Urine <2.0 mg/dL (<2.0)
[2019-02-24] MEDS: ACETAMINOPHEN TAB 325 MG TAB PO PRN (21:03)
[2019-02-24] MEDS: PANTOPRAZOLE 40 MG TABLET PO SCH (21:04)
[2019-02-24] MEDS: LORazepam 1 MG TAB PO PRN (21:21)
[2019-02-25] MEDS: ACETAMINOPHEN TAB 325 MG TAB PO PRN ×2 (05:50→16:32)
[2019-02-25] MEDS: LORazepam 1 MG TAB PO PRN (05:52)
[2019-02-25] MEDS: PANTOPRAZOLE 40 MG TABLET PO SCH ×2 (09:12→16:32)
[2019-02-25 09:47] LABS: Basophils # (A) 0.1 k/uL (0-0.2); Basophils % (A) 1 %; Eosinophils # (A) 0.3 k/uL (0-0.7); Eosinophils % (A) 4 %; HCT 45.5 % (39.0-53.0); HGB 14.4 gm/dL (13.0-17.5); Lymphocytes # (A) 1.7 k/uL (1.0-4.8); Lymphocytes % (A) 23 %; MCHC 31.6 g/dL (31.0-37.0); MCV 88.4 fL (80.0-100.0); Mean Platelet Volume 6.8; Monocytes # (A) 0.5 k/uL (0-1.0); Monocytes % (A) 7 %; Neutrophils # (A) 4.8 k/uL (1.3-7.7); Neutrophils % (A) 62 %; Platelet Count 370 k/uL (150-450); RBC 5.15 m/uL (4.30-5.90); RDW 14.6 % (11.5-15.5); WBC 7.6 k/uL (3.8-10.6)
[2019-02-25 09:54] LABS: Albumin 4.5 g/dL (3.5-5.0); Calcium 10.1 mg/dL (8.4-10.2); Potassium 5.1 mmol/L (3.5-5.1); Total Bilirubin 0.7 mg/dL (0.2-1.3); Total Protein 7.4 g/dL (6.3-8.2)
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
[2019-02-25] MEDS: ALPRAZolam 0.5 MG TAB PO SCH ×2 (16:32→21:19)
[2019-02-25 18:16] LABS: Hemoglobin A1C 5.7 % (4.0-6.0)
[2019-02-25] MEDS: PALIPERIDONE 6 MG TAB.ER.24 PO SCH (21:19)
--- NOTE | 2019-02-25 22:57 | P.MDCNMH ---
History of Present Illness H&P Date: 02/25/19 Chief Complaint: Suicidal ideation Patient is a 58-year-old male with a known history of bipolar disorder, schizophrenia and previous history of smoking was brought to the hospital by police due to suicidal ideation. Patient was petitioned by his . Patient has not been taking his meds and also feels very depressed. Yesterday when he was trying to his and patient said that is going to come and suicide and opened pill bottle containing Xanax tablets. Otherwise patient denied any complaints of chest pain or shortness of breath. No nausea vomiting or abdomina l pain. No headache or dizziness or lightheadedness. Review of Systems Constitutional: Patient denies any fever or chills . No generalized weakness or weight loss. Abdomen: Patient denied nausea vomiting and diarrhea and abdominal pain. Cardiovascular: Patient denies any chest pain or short of breath no palpitations. Respiratory: patient denied any cough is from production. No shortness of breath Neurologic: Patient denied any numbness or tingling headache. Musculoskeletal: Patient denies any complaints of joint swelling or deformity. Skin: Negative Psychiatric: Negative Endocrine: No heat or cold intolerance. No recent weight gain. Genitourinary: No dysuria or hematuria. All other 14 point ROS negative except the above Past Medical History Past Medical History: No Reported History History of Any Multi-Drug Resistant Organisms: None Reported Past Surgical History: Hernia Repair, Orthopedic Surgery, Tonsillectomy Additional Past Surgical History / Comment(s): skin graft to lower right leg x2 Past Psychological History: Bipolar, Schizophrenia Smoking Status: Former smoker Past Alcohol Use History: None Reported Past Drug Use History: Marijuana Medications and Allergies Home Medications Medication Instructions Recorded Confirmed Type Fluticasone Propionate [Flonase 1 spray EA NOSTRIL DAILY PRN 12/20/17 02/24/19 History Allergy Relief] Omeprazole 40 mg PO BID #30 capsule. 01/05/18 02/24/19 Rx ALPRAZolam [Xanax] 0.5 mg PO TID PRN 02/24/19 02/24/19 History Allergies Allergy/AdvReac Type Severity Reaction Status Date / Time oxycodone [From OxyContin] Allergy Rash/Hives Verified 02/24/19 12:43 Physical Exam Vitals: Vital Signs Temp Pulse Pulse Resp BP BP Pulse Ox 02/25/19 06:26 98.2 F 79 18 124/75 02/24/19 18:51 98.3 F 80 16 131/82 98 02/24/19 18:43 68 18 132/87 98 Intake and Output 02/24/19 02/25/19 02/25/19 22:59 06:59 14:59 Other: Weight 110.178 kg PHYSICAL EXAMINATION: Patient is lying in the bed comfortably, no acute distress, awake alert and oriented.. HEENT: Normocephalic. Neck is supple. Pupils reactive. Nostrils clear. Oral cavity is moist. Ears reveal no drainage. Neck reveals no JVD, carotid bruits, or thyromegaly. CHEST EXAMINATION: Trachea is central. Symmetrical expansion. Lung travis clear to auscultation and percussion. CARDIAC: Normal S1, S2 with no gallops. No murmurs ABDOMEN: Soft. Bowel sounds normal. No organomegaly. No abdominal bruits. Extremities: reveal no edema. No clubbing or cyanosis Neurologically awake, alert, oriented x3 with well-coordinated movements. No focal deficits noted Skin: No rash or skin lesions. Psychiatric: Coperative. Nonsuicidal Musculoskeletal: No joint swelling or deformity. Normal range of motion. Cranial Nerve Examination - Cranial Nerves Cranial Nerve I- Olfactory: Intact Cranial Nerve II- Optic: Intact Cranial Nerve III- Oculomotor: Intact Cranial Nerve IV- Trochlear: Intact Cranial Nerve V- Trigeminal: Intact Cranial Nerve - Abducens: Intact Cranial Nerve VII- Facial: Intact Cranial Nerve VIII- Auditory: Intact Cranial Nerve IX- Glossopharyngeal: Intact Cranial Nerve X- Vagus: Intact Cranial Nerve XI- Accessory: Intact Cranial Nerve XII- Hypoglossal: Intact Results CBC & Chem 7: 02/25/19 09:12 02/25/19 09:12 Labs: Abnormal Lab Results - Last 24 Hours (Table) 02/25/19 Range/Units 09:12 Glucose 138 H (74-99) mg/dL Triglycerides 270 H (<150) mg/dL Cholesterol 211 H (<200) mg/dL LDL Cholesterol, Calc 113 H (0-99) mg/dL Assessment and Plan Assessment: Acute suicidal ideation Noncompliance with medications Bipolar disorder and schizophrenia History of smoking and marijuana use Elevated blood pressure on admission Plan: Patient will be continued on current psychiatric medications. Patient blood pressure was elevated likely due to anxiety and agitation. Currently blood pressure is well controlled. No need for antihypertensive medications. Continue the current psychiatric management. Further recommendations based on the clinical course. Thank you for your consult.
[2019-02-25] MEDS: FLUTICASONE 50MCG/SPRAY NASAL 16GM EA NOSTRIL PRN (22:58)
[2019-02-26] MEDS: ACETAMINOPHEN TAB 325 MG TAB PO PRN (06:47)
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
[2019-02-26] MEDS: PANTOPRAZOLE 40 MG TABLET PO SCH ×2 (09:08→16:32)
[2019-02-26] MEDS: ALPRAZolam 0.5 MG TAB PO SCH ×3 (09:08→21:03)
[2019-02-26 13:59] VITALS: BMI 36.9
[2019-02-26] MEDS: PALIPERIDONE 6 MG TAB.ER.24 PO SCH (21:03)
[2019-02-26] MEDS: MELATONIN 3 MG TABLET PO SCH (21:03)
[2019-02-26] MEDS: FLUTICASONE 50MCG/SPRAY NASAL 16GM EA NOSTRIL PRN (21:45)
[2019-02-27] MEDS: PANTOPRAZOLE 40 MG TABLET PO SCH ×2 (07:57→16:37)
[2019-02-27] MEDS: ALPRAZolam 0.5 MG TAB PO SCH ×3 (07:57→21:10)
--- NOTE | 2019-02-27 08:41 | P.PN ---
Progress Note - Text Progress Note Date: 02/27/19 Interval History: Patient is a 58-year-old male who was seen today and he reports that he feels dizzy when he lays down at night, he states that he was feeling dizzy prior to coming into the hospital. Patient states he does not drink a lot of water while he is here on the unit. Patient states that he feels a little dizzy when he gets up and sits at the side of the bed and it stops. Patient reports that he has no other side effects. Patient was not taking other medications prior to coming into the hospital. Patient states on the Abilify he was pacing and couldn't sit still. Mental Status: Appearance/Attitude: Patient is neatly dressed, makes eye contact and is cooperative Behavior: Patient does not exhibit any psychomotor agitation or retardation Speech/Language: Patient's speech is spontaneous of normal volume and rhythm and he is coherent Thought Process: Patient is goal-directed there is no evidence of loose association or flight of ideas Thought Content: Patient denies any auditory or visual hallucinations and no delusions or paranoid ideation or elicited, the patient denies any delusional ideation and states that his suicidal threat was just a joke. Patient is reporting feeling dizzy when he lies down at night to go to sleep and states he was feeling that way prior to coming into the hospital. Patient reports that he slept well last night and his appetite is good Suicidal/Homicidal Ideation: Patient is denying any current suicidal or homicidal ideation Sensorium/Cognition: Patient is alert and oriented to person, place, and time and his recent and remote memory is grossly intact. Mood/Affect: Patient's mood is pleasant and his affect is appropriate Insight/Judgment: Patient's insight and judgment are fair Assessment: Patient states that his suicidal threat at home was a joke, he downplays all other symptoms and denies having any other symptomatology. Patient is complaining of dizziness but states that he was dizzy prior to coming into the hospital and beginning the medication. He reports that occurs when he lies down for a few seconds and then when he sits up for a few seconds. Noted that the patient's blood pressure is running slightly lower than it was on admission. Patient was encouraged to drink more fluids as he states that he has not been drinking any water or any other additional liquids other than what served with his meals. Plan: Patient will continue on Invega 6 mg at bedtime, Xanax 0.5 mg 3 times a day and melatonin 3 mg at night. Patient continues to downplay his symptomatology, he was encouraged to drink more water during the day and will continue to monitor his vital signs and should his dizziness continue reconsult medicine. Patient continues to require hospitalization to further stabilize his mood.
[2019-02-27] MEDS: ACETAMINOPHEN TAB 325 MG TAB PO PRN ×3 (11:03→21:11)
[2019-02-27] MEDS: PALIPERIDONE 6 MG TAB.ER.24 PO SCH (21:10)
[2019-02-27] MEDS: MELATONIN 3 MG TABLET PO SCH (21:10)
[2019-02-27] MEDS: FLUTICASONE 50MCG/SPRAY NASAL 16GM EA NOSTRIL PRN (21:22)
[2019-02-28] MEDS: ALPRAZolam 0.5 MG TAB PO SCH ×3 (08:58→20:42)
[2019-02-28] MEDS: PANTOPRAZOLE 40 MG TABLET PO SCH ×2 (08:58→17:39)
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
[2019-02-28] MEDS: MELATONIN 3 MG TABLET PO SCH (20:41)
[2019-02-28] MEDS: PALIPERIDONE 6 MG TAB.ER.24 PO SCH (20:42)
[2019-02-28] MEDS: ACETAMINOPHEN TAB 325 MG TAB PO PRN (20:42)
[2019-03-01] MEDS: ALPRAZolam 0.5 MG TAB PO SCH ×3 (09:18→21:00)
[2019-03-01] MEDS: ACETAMINOPHEN TAB 325 MG TAB PO PRN ×3 (09:20→21:01)
[2019-03-01] MEDS: PANTOPRAZOLE 40 MG TABLET PO SCH ×2 (09:20→16:11)
[2019-03-01] MEDS ORDERED: PALIPERIDONE IM 234 MG/1.5 ML SYG IM STA (10:31)
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
[2019-03-01] MEDS: PALIPERIDONE 6 MG TAB.ER.24 PO SCH (21:00)
[2019-03-01] MEDS: MELATONIN 3 MG TABLET PO SCH (21:00)
[2019-03-01] MEDS: FLUTICASONE 50MCG/SPRAY NASAL 16GM EA NOSTRIL PRN (21:01)
[2019-03-02] MEDS: PANTOPRAZOLE 40 MG TABLET PO SCH ×2 (09:01→16:41)
[2019-03-02] MEDS: ALPRAZolam 0.5 MG TAB PO SCH ×3 (09:02→20:34)
[2019-03-02] MEDS: ACETAMINOPHEN TAB 325 MG TAB PO PRN ×3 (09:03→20:34)
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
[2019-03-02] MEDS: MELATONIN 3 MG TABLET PO SCH (20:34)
[2019-03-02] MEDS: PALIPERIDONE 6 MG TAB.ER.24 PO SCH (20:34)
[2019-03-03] MEDS: PANTOPRAZOLE 40 MG TABLET PO SCH ×2 (07:59→16:32)
[2019-03-03] MEDS: ALPRAZolam 0.5 MG TAB PO SCH ×3 (07:59→21:00)
[2019-03-03] MEDS: ACETAMINOPHEN TAB 325 MG TAB PO PRN ×3 (07:59→21:00)
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
[2019-03-03] MEDS: FLUTICASONE 50MCG/SPRAY NASAL 16GM EA NOSTRIL PRN (21:00)
[2019-03-03] MEDS: PALIPERIDONE 6 MG TAB.ER.24 PO SCH (21:00)
[2019-03-03] MEDS: MELATONIN 3 MG TABLET PO SCH (21:00)
[2019-03-04] MEDS: PANTOPRAZOLE 40 MG TABLET PO SCH ×2 (09:05→16:27)
[2019-03-04] MEDS: ALPRAZolam 0.5 MG TAB PO SCH ×3 (09:05→21:09)
[2019-03-04] MEDS: ACETAMINOPHEN TAB 325 MG TAB PO PRN ×3 (09:07→21:10)
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
[2019-03-04] MEDS: FLUTICASONE 50MCG/SPRAY NASAL 16GM EA NOSTRIL PRN (21:09)
[2019-03-04] MEDS: MELATONIN 3 MG TABLET PO SCH (21:09)
[2019-03-04] MEDS: PALIPERIDONE 6 MG TAB.ER.24 PO SCH (21:09)
[2019-03-05] MEDS: PANTOPRAZOLE 40 MG TABLET PO SCH ×2 (08:55→15:31)
[2019-03-05] MEDS: ALPRAZolam 0.5 MG TAB PO SCH ×3 (08:55→20:57)
[2019-03-05] MEDS: ACETAMINOPHEN TAB 325 MG TAB PO PRN ×3 (08:56→20:58)
--- NOTE | 2019-03-05 11:34 | P.PN ---
Progress Note - Text Interval history: The patient is found in group he follows me to an interview room. He indicates his mood is good. He states that he plans to be discharged Thursday. He states he will receive his second injection of Invega Sustenna and he will have his family meeting on that day. He is somewhat guarded and is not reporting any symptoms of psychosis. He states that he is eating well sleeping well. Mental status exam: The patient is alert is dressed in his own clothing hygiene grooming adequate. He is pleasant and cooperative. He is carrying a Bible with him. He reports his mood is good. His affect is pleasant and congruent to his reported mood. He reports no suicidal or homicidal ideation intent or plan. He reports no auditory or visual hallucinations and is reporting no specific delusions. Again he is likely underreporting symptoms. He demonstrated no verbal or physical aggressiveness in terms of movements he did shake both legs throughout the session. Insight and judgment improving. He is oriented to person place day the week month and year. Impressions/plan: The patient will continue on his current medications. He reports he is stabilizing. He may have residual symptoms of psychosis but his behavior has been appropriate. He is encouraged to continue attending groups. Vital signs reviewed.
[2019-03-05] MEDS: PALIPERIDONE 6 MG TAB.ER.24 PO SCH (20:57)
[2019-03-05] MEDS: MELATONIN 3 MG TABLET PO SCH (20:57)
[2019-03-05] MEDS: FLUTICASONE 50MCG/SPRAY NASAL 16GM EA NOSTRIL PRN (20:58)
[2019-03-06] MEDS: PANTOPRAZOLE 40 MG TABLET PO SCH ×2 (07:50→16:30)
[2019-03-06] MEDS: ACETAMINOPHEN TAB 325 MG TAB PO PRN ×3 (08:27→21:19)
[2019-03-06] MEDS: ALPRAZolam 0.5 MG TAB PO SCH ×3 (08:27→21:19)
--- NOTE | 2019-03-06 09:33 | P.PN ---
Progress Note - Text Interval history: The patient is found in his room he follows me to an interview room. He indicates his mood is good. He states that he is hoping he will be discharged Thursday. He continues to have phone conversations with his . He doesn't anticipate a visit as they cannot afford the time or the gas money for her to drive here. He indicates he slept last night he states he is eating well. He will selectively attended groups. He has no questions or concerns regarding his medication. Mental status exam: The patient is an overweight male. He is dressed in his own clothing hygiene grooming adequate. Speech is fluent spontaneous nonpressured. Eye contact is appropriate. He demonstrates no verbal or physical aggressiveness. He demonstrates no involuntary repetitive movements. He denies having any suicidal or homicidal ideation intent or plan. He was admitted for symptoms of psychosis but denies having any auditory or visual hallucinations. He denies having any paranoid persecutory thoughts. He does not spontaneously report any hyper muslim or somatic delusions. Of course they may persist and he may be underreporting. Behavior stinson he's been pleasant cooperative and easily directable. Insight and judgment improving. Plan: The patient will continue on his current medication. We will monitor him for safety. He is encouraged to fully participate in the milieu. Vital signs reviewed. Blood pressure was lower today we will monitor that further.
[2019-03-06] MEDS: MELATONIN 3 MG TABLET PO SCH (21:19)
[2019-03-06] MEDS: PALIPERIDONE 6 MG TAB.ER.24 PO SCH (21:19)
[2019-03-06] MEDS: FLUTICASONE 50MCG/SPRAY NASAL 16GM EA NOSTRIL PRN (21:20)
[2019-03-07] MEDS: ACETAMINOPHEN TAB 325 MG TAB PO PRN ×3 (09:02→21:06)
[2019-03-07] MEDS: PANTOPRAZOLE 40 MG TABLET PO SCH ×2 (09:02→17:10)
[2019-03-07] MEDS: ALPRAZolam 0.5 MG TAB PO SCH ×3 (09:02→21:04)
--- NOTE | 2019-03-07 12:50 | P.PN ---
Progress Note - Text Progress Note Date: 03/07/19 Interval History: Patient was seen in his room lying down and was able to speak to senior writer in the office. Patient was calm and directable with interview. Patient was constricted in affect over answer questions appropriately. He denied any complaints over the weekend and states that he slept well overnight. He admits to eating well. Spoke with patient in great length about Xanax and his need to attempt to titrate down from it as an outpatient and he will discuss that with Dr. Kirk. Patient was agreeable to the second in vacant dose given tomorrow likely discharge afterwards. Patient denies any depression and denies any manic symptoms at this time. At this time patient denies any suicidal or homical ideations, intent or plan. Patient denies any auditory, visual hallucinations and denies any paranoia or delusions. Patient denies any side effects from the medications and has been compliant with meds. Mental Status Exam: General Appearance: Patient appears to be stated age is alert, pleasant, and cooperative. Fair hygiene and fair grooming. Behavior: Patient is calmly seated without any agitated behavior. Speech: Patient's speech is fluent and nonpressured. Mood/Affect: Patient reports their mood is improving, affect is congruent and constricted. Suicidality/Homicidality: Patient denies having any suicidal or homicidal ideation intent or plan. Perceptions: Patient denies any auditory or visual hallucinations. Though content/process: There is no evidence of any delusional thought content and thought process is linear and goal-directed. Poverty of content and thought. Memory and concentration: AOX3, grossly intact for the purposes of this session Judgment and insight: fair, improving Assessment Schizoaffective disorder, bipolar type Plan: -Patient continues to meet criteria for inpatient psychiatric admission for symptom stabilization and safety. -Medications: Will discontinue Invega 6 mg by mouth tonight will be last dose for schizophrenia. Continue Xanax 0.5 3 times a day and discussed with patient need to cut back and discuss more with his outpatient psychiatrist Dr. Kirk. Patient verbally understood and agreed. -Patient to receive second dose of Invega tomorrow 156 mg. -When necessary Ativan for agitation/aggression. -SW on board for discharge planning. to come and hot die picker patient tomorrow. Patient follows up with Dr. Kirk as an outpatient psychiatrist
[2019-03-07] MEDS: MELATONIN 3 MG TABLET PO SCH (21:04)
[2019-03-07] MEDS: PALIPERIDONE 6 MG TAB.ER.24 PO SCH (21:04)
[2019-03-07] MEDS: FLUTICASONE 50MCG/SPRAY NASAL 16GM EA NOSTRIL PRN (21:05)
[2019-03-08 06:25] VITALS: BP 97/56; PULSE 75; RESP 18; TEMP 97.9
[2019-03-08] MEDS: PANTOPRAZOLE 40 MG TABLET PO SCH (07:50)
[2019-03-08] MEDS: ALPRAZolam 0.5 MG TAB PO SCH (08:35)
[2019-03-08] MEDS ORDERED: PALIPERIDONE IM 156 MG/ML SYG IM ONE (09:00)
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
== END 2019-03-08 13:30 | disposition home or self-care (01) | DRG 885 ==
LOC: EC 11:51 → 3MHU 17:30
PROVIDERS: ADMIT Psychiatry & Neurology Psychiatry; ATTEND Psychiatry & Neurology Psychiatry
DX: F25.0 Schizoaffective disorder, bipolar type (principal); R45.851 Suicidal ideations; Z91.128 Patient's intentional underdosing of medication regimen for other reason; F12.10 Cannabis abuse, uncomplicated; E78.5 Hyperlipidemia, unspecified; K21.9 Gastro-esophageal reflux disease without esophagitis; R42 Dizziness and giddiness; M19.90 Unspecified osteoarthritis, unspecified site; T50.996A Underdosing of other drugs, medicaments and biological substances, initial encounter; F41.9 Anxiety disorder, unspecified; R03.0 Elevated blood-pressure reading, without diagnosis of hypertension; Z79.899 Other long term (current) drug therapy; Z98.890 Other specified postprocedural states; Z87.891 Personal history of nicotine dependence; Z94.5 Skin transplant status; Z62.810 Personal history of physical and sexual abuse in childhood; Y63.6 Underdosing and nonadministration of necessary drug, medicament or biological substance; Z88.5 Allergy status to narcotic agent
CPT/HCPCS: 80053; 80061; 80306; 81003; 83036; 84443; 85025; 99285

== ENCOUNTER 2021-02-27 08:10 | Day surgery (SDC) | payer OTHER ==
[2021-02-25 10:50] VITALS: BMI 33.5
[~2021-02-27 08:10] MED LIST: LACTATED RINGERS 1,000 ML IV SCH; LIDOCAINE 1% (10MG/ML) FOR IV START INTRADERMA PRN
--- NOTE | 2021-02-27 08:16 | P.GSHP ---
History of Present Illness H&P Date: 02/27/21 CHIEF COMPLAINT: Colon screen HISTORY OF PRESENT ILLNESS: The patient is a 60-year-old male who presents for colon screen. Lower endoscopy was offered for further evaluation and management. PAST MEDICAL HISTORY: Please see list. PAST SURGICAL HISTORY: Please see list. MEDICATIONS: Please see list. ALLERGIES: Please see list. SOCIAL HISTORY: No illicit drug use FAMILY HISTORY: No reports of Crohn disease or ulcerative colitis. REVIEW OF ORGAN SYSTEMS: CONSTITUTIONAL: No reports of fevers or chills. PHYSICAL EXAM: VITAL SIGNS: Stable GENERAL: Well-developed pleasant in no acute distress. HEENT: No scleral icterus. Extraocular movements grossly intact. Moist buccal mucosa. NECK: Supple without lymphadenopathy. CHEST: Unlabored respirations. Equal bilateral excursions. CARDIOVASCULAR: Regular rate and rhythm. Distal 2+ pulses. ABDOMEN: Soft, nontender, nondistended. MUSCULOSKELETAL: No clubbing, cyanosis, or edema. ASSESSMENT: 1. Colon screen. PLAN: 1. Recommend proceeding with a lower endoscopy Past Medical History Past Medical History: GERD/Reflux History of Any Multi-Drug Resistant Organisms: None Reported Past Surgical History: Hernia Repair, Orthopedic Surgery, Tonsillectomy Additional Past Surgical History / Comment(s): skin graft to lower right leg x2, COLONOSCOPY Past Anesthesia/Blood Transfusion Reactions: No Reported Reaction Smoking Status: Former smoker - Past Family History Mother Family Medical History: No Reported History Medications and Allergies Home Medications Medication Instructions Recorded Confirmed Type Fluticasone Propionate [Flonase 1 spray EA NOSTRIL DAILY PRN 12/20/17 02/25/21 History Allergy Relief] ALPRAZolam [Xanax] 0.5 mg PO TID 7 Days #21 tab 03/08/19 02/25/21 Rx Melatonin 3 mg PO HS #7 tablet 03/08/19 02/25/21 Rx Pantoprazole [Protonix] 40 mg PO AC-BID tablet. 03/08/19 02/25/21 Rx Allergies Allergy/AdvReac Type Severity Reaction Status Date / Time oxycodone [From OxyContin] Allergy Rash/Hives Verified 02/25/21 10:43
[2021-02-27 08:28] VITALS: TEMP 97.8
[2021-02-27] MEDS ORDERED: LACTATED RINGERS 1,000 ML IV ONE (08:30)
[2021-02-27] MEDS ORDERED: PROPOFOL 10 MG/ML 20 ML VIAL IV ONE (09:13)
[2021-02-27] MEDS ORDERED: LIDOCAINE 1% INJ 10MG/ML (20 ML MDV) ONE (09:13)
--- NOTE | 2021-02-27 09:43 | P.PCN ---
Date of Procedure: 02/27/21 Description of Procedure: PREOPERATIVE DIAGNOSIS: Personal history of colon polyps Colonoscopy screening POSTOPERATIVE DIAGNOSIS: Personal history of colon polyps Tubular adenoma splenic flexure Tubular adenoma ascending colon Tubular adenoma transverse colon Internal hemorrhoids, grade 2 OPERATION: Colonoscopy to the ileocecal valve and appendiceal orifice, cecum Colonoscopy with hot snare polypectomy SURGEON: Elina Cortez MD. ANESTHESIA: MAC. INDICATIONS: The patient is an 60-year-old male who presents personal history of colon polyps. Last colonoscopy over 5 years. Benefits and risks were described and informed consent was obtained. DESCRIPTION OF PROCEDURE: The patient had undergone Sutab prep. The patient had been brought into the operating room and laid in the left lateral decubitus position. After adequate intravenous sedation, the rectum was examined with 2% lidocaine jelly. The prostate was unremarkable. External hemorrhoids were encountered. The rectal tone was within normal limits. No lesions were palpated in the rectal vault. An Olympus colonoscope was advanced until the cecum, ileocecal valve and appendiceal orifice were clearly viewed. The prep was excellent. No sigmoid diverticulosis was encountered. Colonic polyps were found and removed. No natalya dence of focal colitis was found. Retroflexion of the scope demonstrated grade 2 internal hemorrhoids without active bleeding or inflammation. The colon was desufflated. The patient had tolerated the procedure well. Withdrawal time was over 6 minutes. FINDINGS: Aronchick preparation quality scale 1 (1-5) Internal hemorrhoids, grade 2 External hemorrhoids, grade 2. No arteriovenous malformations. No sigmoid diverticulosis Removal of 3 polyps: - Snare polypectomy splenic flexure, 5 mm tubulovillous adenoma polyp. - Snare polypectomy mid transverse colon, 5 mm flat villous adenoma polyp. - Snare polypectomy descending colon, 5 mm flat villous adenoma polyp. No focal colitis. RECOMMENDATIONS: Given severity of tubular adenomas, recommend repeat colonoscopy in 3 years, 2023 Plan - Discharge Summary Discharge Rx Participant: No New Discharge Prescriptions: Continue Fluticasone Propionate [Flonase Allergy Relief] 1 spray EA NOSTRIL DAILY PRN PRN Reason: Allergy Symptoms Melatonin 3 mg PO HS #7 tablet Pantoprazole [Protonix] 40 mg PO AC-BID tablet. ALPRAZolam [Xanax] 0.5 mg PO TID 7 Days #21 tab Discharge Medication List Fluticasone Propionate [Flonase Allergy Relief] 1 spray EA NOSTRIL DAILY PRN 12/20/17 [History] ALPRAZolam [Xanax] 0.5 mg PO TID 7 Days #21 tab 03/08/19 [Rx] Melatonin 3 mg PO HS #7 tablet 03/08/19 [Rx] Pantoprazole [Protonix] 40 mg PO AC-BID tablet. 03/08/19 [Rx] Discharge Disposition: HOME SELF-CARE
[2021-02-27 10:03] VITALS: BP 109/74; PULSE 65; RESP 18
== END 2021-02-27 11:04 | disposition home or self-care (01) ==
LOC: ORWHC2ENDO 08:10
PROVIDERS: ATTEND Surgery Plastic and Reconstructive Surgery
DX: Z12.11 Encounter for screening for malignant neoplasm of colon (principal); D12.4 Benign neoplasm of descending colon; D12.2 Benign neoplasm of ascending colon; D12.3 Benign neoplasm of transverse colon; K64.8 Other hemorrhoids; K21.9 Gastro-esophageal reflux disease without esophagitis; Z88.5 Allergy status to narcotic agent; Z87.891 Personal history of nicotine dependence; Z86.010 Personal history of colon polyps
CPT/HCPCS: 45385; 88305; J2001; J2704

== ENCOUNTER 2022-12-11 08:56 | Day surgery (SDC) | payer OTHER ==
[2022-12-09 11:01] VITALS: BMI 34.9
[~2022-12-11 08:56] MED LIST changes: -LIDOCAINE 1% (10MG/ML) FOR IV START INTRADERMA PRN
--- NOTE | 2022-12-11 09:03 | P.GSHP ---
History of Present Illness H&P Date: 12/11/22 CHIEF COMPLAINT: GERD and colon screen HISTORY OF PRESENT ILLNESS: The patient is a 62-year-old male who presents with gastroesophageal reflux disease and need for colon screen. Upper and lower endoscopy were offered for further evaluation and management. PAST MEDICAL HISTORY: Please see list. PAST SURGICAL HISTORY: Please see list. MEDICATIONS: Please see list. ALLERGIES: Please see list. SOCIAL HISTORY: No illicit drug use FAMILY HISTORY: No reports of Crohn disease or ulcerative colitis. REVIEW OF ORGAN SYSTEMS: CONSTITUTIONAL: No reports of fevers or chills. GI: Denies any blood in stools or constipation. PHYSICAL EXAM: VITAL SIGNS: Stable GENERAL: Well-developed pleasant in no acute distress. HEENT: No scleral icterus. Extraocular movements grossly intact. Moist buccal mucosa. NECK: Supple without lymphadenopathy. CHEST: Unlabored respirations. Equal bilateral excursions. CARDIOVASCULAR: Regular rate and rhythm. Distal 2+ pulses. ABDOMEN: Soft, nondistended. MUSCULOSKELETAL: No clubbing, cyanosis, or edema. ASSESSMENT: 1. Gastroesophageal reflux disease 2. Colon screen. PLAN: 1. Recommend proceeding with an upper and lower endoscopy Past Medical History Past Medical History: COPD, GERD/Reflux, Hearing Disorder / Deafness, Hyperlipidemia, Osteoarthritis (OA), Prostate Disorder Additional Past Medical History / Comment(s): Ringing in ears, hearing trouble at times. Migraines. History of Any Multi-Drug Resistant Organisms: None Reported Past Surgical History: Hernia Repair, Tonsillectomy Additional Past Surgical History / Comment(s): Skin graft to lower right leg X2, colonoscopy, knee and shoulder injections. Past Anesthesia/Blood Transfusion Reactions: No Reported Reaction Past Psychological History: Anxiety, Bipolar, Schizophrenia Smoking Status: Former smoker Past Alcohol Use History: None Reported Additional Past Alcohol Use History / Comment(s): Quit smoking 10/2022, smoked on and off for many yrs. Past Drug Use History: None Reported - Past Family History Mother Family Medical History: No Reported History, CVA/TIA Additional Family Medical History / Comment(s): Skin cancer. Father Family Medical History: Cancer Additional Family Medical History / Comment(s): Leukemia. Medications and Allergies Home Medications Medication Instructions Recorded Confirmed Type ALPRAZolam [Xanax] 0.25 mg PO TID 12/09/22 12/09/22 History Atorvastatin [Lipitor] 20 mg PO DAILY 12/09/22 12/09/22 History Pantoprazole [Protonix] 40 mg PO DAILY 12/09/22 12/09/22 History Allergies Allergy/AdvReac Type Severity Reaction Status Date / Time oxycodone [From OxyContin] Allergy Rash/Hives Verified 12/09/22 10:42
[2022-12-11 09:09] VITALS: TEMP 97
[2022-12-11] MEDS ORDERED: LIDOCAINE 1% (10MG/ML) FOR IV START INTRADERMA ONE (09:11)
[2022-12-11] MEDS ORDERED: PROPOFOL 10 MG/ML 20 ML VIAL IV ONE (09:17)
[2022-12-11] MEDS ORDERED: LIDOCAINE 2% INJ 20 MG/ML (2 ML VIAL) ONE (09:17)
[2022-12-11 09:58] VITALS: RESP 16
--- NOTE | 2022-12-11 10:10 | P.PCN ---
Date of Procedure: 12/11/22 Description of Procedure: PREOPERATIVE DIAGNOSIS: Gastric esophageal reflux disease Gastritis with GI bleeding POSTOPERATIVE DIAGNOSIS: Gastroesophageal reflux disease. Morbid obesity. Gastritis. OPERATION: Esophagogastroduodenoscopy with biopsies along antrum and duodenum SURGEON: Elina Cortez MD ANESTHESIA: MAC. INDICATIONS: The patient is a 62-year-old male who presents with reflux disease and GI bleed from nonsteroidal anti-inflammatory drug. Benefits and risks of the procedure were described. Informed consent was obtained. DESCRIPTION: The patient was brought into the endoscopy suite and laid in the left lateral decubitus position. An Olympus gastroscope was passed along the posterior oropharynx down to the distal esophagus where the squamocolumnar junction was encountered at 40 cm from the incisors. The stomach was entered and no bile reflux was found. Additional findings are listed below. Biopsies with cold forceps were obtained of the antrum. The first through third portion of the duodenum was examined. Retroflexion of the scope confirmed Hill grade 2 lower esophageal valve. The squamocolumnar junction demonstrated LA grade B erosive esophagitis. The stomach was desufflated. The patient tolerated the procedure well. FINDINGS: Squamocolumnar junction 40 cm from the incisors. Diaphragmatic hiatus at 40 cm. Hill grade 3 lower esophageal valve. LA grade B erosive esophagitis. Biopsies obtained duodenum Chronic gastritis RECOMMENDATIONS: Upper endoscopy as needed.
--- NOTE | 2022-12-11 10:13 | P.PCN ---
Date of Procedure: 12/11/22 Description of Procedure: PREOPERATIVE DIAGNOSIS: Personal history colon polyps Colonoscopy screening POSTOPERATIVE DIAGNOSIS: Internal and external hemorrhoids, grade 2 OPERATION: Colonoscopy to the cecum, ileocecal valve and appendiceal orifice. SURGEON: Elina Cortez MD. ANESTHESIA: MAC. INDICATIONS: The patient is a 62-year-old male who presents for colonoscopy screening. Benefits and risks were described and informed consent was obtained. DESCRIPTION OF PROCEDURE: The patient had undergone Sutab prep. The patient had been brought into the operating room and laid in the left lateral decubitus position. After adequate intravenous sedation, the rectum was examined with 2% lidocaine jelly. External hemorrhoids were encountered. The rectal tone was within normal limits. No lesions were palpated in the rectal vault. An Olympus colonoscope was advanced until the cecum, ileocecal valve and appendiceal orifice were clearly viewed. The prep was excellent. No large scattered diverticulosis was encountered. No colonic polyps were found. No evidence of focal colitis was found. Retroflexion of the scope demonstrated grade 1 internal hemorrhoids without active bleeding or inflammation. The colon was desufflated. The patient had tolerated the procedure well. Withdrawal time was over 6 minutes. FINDINGS: Aronchick preparation quality scale 1 (1-5) Internal hemorrhoids, grade 2 External prolapsed hemorrhoids, grade 2 No arteriovenous malformations. No adenomatous polyps. No focal colitis. Redundant sigmoid colon requiring abdominal wall pressure RECOMMENDATIONS: Lower endoscopy in 2027 Plan - Discharge Summary Discharge Rx Participant: No New Discharge Prescriptions: Continue Atorvastatin [Lipitor] 20 mg PO DAILY ALPRAZolam [Xanax] 0.25 mg PO TID Pantoprazole [Protonix] 40 mg PO DAILY Discharge Medication List ALPRAZolam [Xanax] 0.25 mg PO TID 12/09/22 [History] Atorvastatin [Lipitor] 20 mg PO DAILY 12/09/22 [History] Pantoprazole [Protonix] 40 mg PO DAILY 12/09/22 [History] Follow up Appointment(s)/Referral(s): Elina Cortez MD [STAFF PHYSICIAN] - As Needed Patient Instructions/Handouts: *Surgery [facility] - (Anesthesia) Discharge Instructions Outpatient Surgery, Gastritis (DC) Activity/Diet/Wound Care/Special Instructions: Repeat colonoscopy in 5 years2027 Discharge Disposition: HOME SELF-CARE
[2022-12-11 10:24] VITALS: BP 118/73; PULSE 75
== END 2022-12-11 10:43 | disposition home or self-care (01) ==
LOC: ORWHC2ENDO 08:56
PROVIDERS: ATTEND Surgery Plastic and Reconstructive Surgery
DX: Z12.11 Encounter for screening for malignant neoplasm of colon (principal); K29.50 Unspecified chronic gastritis without bleeding; K21.00 Gastro-esophageal reflux disease with esophagitis, without bleeding; J44.9 Chronic obstructive pulmonary disease, unspecified; K21.9 Gastro-esophageal reflux disease without esophagitis; K44.9 Diaphragmatic hernia without obstruction or gangrene; E78.5 Hyperlipidemia, unspecified; M19.90 Unspecified osteoarthritis, unspecified site; K64.1 Second degree hemorrhoids; E66.01 Morbid (severe) obesity due to excess calories; F31.9 Bipolar disorder, unspecified; F41.9 Anxiety disorder, unspecified; Z87.891 Personal history of nicotine dependence; Z80.8 Family history of malignant neoplasm of other organs or systems; Z80.6 Family history of leukemia; Z88.5 Allergy status to narcotic agent; Z68.35 Body mass index [BMI] 35.0-35.9, adult; Z79.899 Other long term (current) drug therapy
CPT/HCPCS: 45378; 43239; J2704; J2001; 88305